=== PATIENT | male | born 1945 | race Caucasian/White ===

== ENCOUNTER 2018-10-29 18:50 | Inpatient (IN) | payer MEDICARE ==
--- OUTSIDE RECORDS SUMMARY | 2018-10-29 18:52 | XMS REPORT ---
:1945 Author Organization [facility] Address [address] [place] [address] Dr. Engle [address] [place] [id number] Care Team Providers Name Role Phone Unavailable Unavailable Unavailable Problems This patient has no known problems. Allergies, Adverse Reactions, Alerts This patient has no known allergies or adverse reactions. Medications This patient has no known medications.
--- NOTE | 2018-10-29 20:10 | EDPHYS ---
Physician Documentation [facility] Name: Louis Albarran Age: 73 yrs Sex: Male : 1945 Arrival Date: 10/29/2018 Time: 18:53 Bed 16 Private MD: ED Physician Kenneth Rodriguez HPI: 10/29 19:59 This 73 yrs old Male presents to ER via Wheelchair with complaints of Flu cony Symptoms, Vomiting/Diarrhea. Historical: - Allergies: 19:06 PENICILLINS; la1 - PMHx: 19:07 Hypertension; la1 - Immunization history:: Adult Immunizations up to date. - Social history:: Smoking status: Patient/guardian denies using tobacco. - Ebola Screening: : No symptoms or risks identified at this time. ROS: 19:59 Constitutional: Negative for fever, chills, and weight loss, Eyes: Negative for injury, cony pain, redness, and discharge, ENT: Negative for injury, pain, and discharge, Neck: Negative for injury, pain, and swelling, Back: Negative for injury and pain, : Negative for injury, bleeding, discharge, and swelling, MS/Extremity: Negative for injury and deformity, Skin: Negative for injury, rash, and discoloration, Neuro: Negative for headache, weakness, numbness, tingling, and seizure. 19:59 Cardiovascular: Positive for palpitations. 19:59 Respiratory: Positive for cough, shortness of breath, wheezing, expiratory. 19:59 Abdomen/GI: Positive for diarrhea, abdominal distension. Exam: 19:59 Constitutional: This is a well developed, well nourished patient who is awake, alert, cony and in no acute distress. Head/Face: Normocephalic, atraumatic. Eyes: Pupils equal round and reactive to light, extra-ocular motions intact. Lids and lashes normal. Conjunctiva and sclera are non-icteric and not injected. Cornea within normal limits. Periorbital areas with no swelling, redness, or edema. ENT: Nares patent. No nasal discharge, no septal abnormalities noted. Tympanic membranes are normal and external auditory canals are clear. Oropharynx with no redness, swelling, or masses, exudates, or evidence of obstruction, uvula midline. Mucous membranes moist. Neck: Trachea midline, no thyromegaly or masses palpated, and no cervical lymphadenopathy. Supple, full range of motion without nuchal rigidity, or vertebral point tenderness. No Meningismus. Chest/axilla: Normal chest wall appearance and motion. Nontender with no deformity. No lesions are appreciated. Abdomen/GI: Soft, non-tender, with normal bowel sounds. No distension or tympany. No guarding or rebound. No evidence of tenderness throughout. Back: No spinal tenderness. No costovertebral tenderness. Full range of motion. Male : Normal genitalia with no discharge or lesions. Skin: Warm, dry with normal turgor. Normal color with no rashes, no lesions, and no evidence of cellulitis. MS/ Extremity: Pulses equal, no cyanosis. Neurovascular intact. Full, normal range of motion. Neuro: Awake and alert, GCS 15, oriented to person, place, time, and situation. Cranial nerves II-XII grossly intact. Motor strength 5/5 in all extremities. Sensory grossly intact. Cerebellar exam normal. Normal gait. Psych: Awake, alert, with orientation to person, place and time. Behavior, mood, and affect are within normal limits. 19:59 Cardiovascular: Rate: tachycardic, Rhythm: regular, Pulses: Pulses are 4+ in bilateral radial, brachial, femoral, popliteal, posterior tibial and and dorsalis pedis arteries.. Heart sounds: normal, JVD: is not appreciated. 19:59 Respiratory: moderate respiratory distress is noted, Respirations: labored breathing, that is moderate, Breath sounds: decreased breath sounds, rhonchi, wheezing: that is moderate, is heard in the right lower lobe, right posterior upper lobe, right posterior middle lobe and right posterior lower lobe. Vital Signs: 19:09 Pulse 109; Resp 18; Temp 101.0; Pulse Ox 88% on R/A; Weight 104.33 kg; Height 5 ft. 10 la1 in. (177.80 cm); 19:10 BP 145 / 92; la1 20:00 BP 135 / 97; Pulse 101; Resp 16; Pulse Ox 96% on 2 lpm NC; jb4 21:45 BP 128 / 66; Pulse 110; Resp 18; Temp 99.6(O); Pulse Ox 97% on R/A; jb4 22:30 BP 109 / 73; Pulse 100; Resp 16; Pulse Ox 93% on R/A; jb4 23:30 BP 135 / 97; Pulse 104; Resp 16; Pulse Ox 93% on R/A; [facility] 10/30 00:30 BP 132 / 80; Pulse 89; Resp 22; Pulse Ox 94% on R/A; [facility] 02:00 BP 147 / 76; Pulse 85; Resp 16; Pulse Ox 94% on 2 lpm NC; [facility] 10/29 19:09 Body Mass Index 33.00 (104.33 kg, 177.80 cm) la1 MDM: 10/29 19:24 Patient medically screened. [facility] 19:59 Data reviewed: vital signs, nurses notes, lab test result(s), EKG, radiologic studies, cony plain films. 10/29 19:35 Order name: Basic Metabolic Panel; Complete Time: 23:12 [facility] 10/29 19:35 Order name: CBC with Diff; Complete Time: 23:12 [facility] 10/29 19:35 Order name: LFT's; Complete Time: 23:12 [facility] 10/29 19:35 Order name: Magnesium; Complete Time: 23:12 [facility] 10/29 19:35 Order name: NT PRO-BNP; Complete Time: 23:12 [facility] 10/29 19:35 Order name: PT-INR; Complete Time: 23:12 [facility] 10/29 19:35 Order name: Troponin (emerg Dept Use Only); Complete Time: 23:12 [facility] 10/29 19:35 Order name: Blood Culture Adult (2) [facility] 10/29 19:35 Order name: Influenza Screen (a \T\ B); Complete Time: 23:12 [facility] 10/29 19:35 Order name: Urine Culture [facility] 10/29 19:35 Order name: Lipase; Complete Time: 23:12 [facility] 10/29 20:06 Order name: Lactate; Complete Time: 23:12 [facility] 10/29 20:06 Order name: Procalcitonin; Complete Time: 23:12 [facility] 10/29 20:06 Order name: Stool Culture [facility] 10/29 19:35 Order name: XRAY Chest (1 view); Complete Time: 23:12 [facility] 10/29 19:35 Order name: EKG; Complete Time: 19:37 [facility] 10/29 20:06 Order name: Fecal Leukocyte Stain [facility] 10/29 21:20 Order name: Manual Differential; Complete Time: 23:12 EDMS 10/29 23:21 Order name: Urine Dipstick--Ancillary (enter results) ar5 10/30 01:32 Order name: Urine Dipstick-Ancillary EDDE 10/29 19:35 Order name: Cardiac monitoring; Complete Time: 20:50 [facility] 10/29 19:35 Order name: EKG - Nurse/Tech; Complete Time: 20:50 [facility] 10/29 19:35 Order name: IV Saline Lock; Complete Time: 20:50 [facility] 10/29 19:35 Order name: Labs collected and sent; Complete Time: 20:50 [facility] 10/29 19:35 Order name: O2 Per Protocol; Complete Time: 21:11 [facility] 10/29 19:35 Order name: O2 Sat Monitoring; Complete Time: 20:51 [facility] 10/29 19:35 Order name: Urine Dipstick-Ancillary (obtain specimen); Complete Time: 23:15 [facility] Administered Medications: 20:30 Drug: Tylenol 650 mg Route: PO; jb4 23:14 Follow up: Response: No adverse reaction; Temperature is decreased jb4 20:50 Drug: Rocephin - (cefTRIAXone) 1 grams {Note: given IVP per pharmacy protocol.} Route: jb4 IVPB; Infused Over: 30 mins; Site: left antecubital; 20:52 Follow up: Response: No adverse reaction; IV Status: Completed infusion jb4 21:00 Drug: Zithromax 500 mg Route: IVPB; Infused Over: 1 hrs; Site: left antecubital; jb4 22:00 Follow up: Response: No adverse reaction; IV Status: Completed infusion jb4 21:00 Drug: NS 0.9% 1000 ml Route: IV; Rate: 1 bolus; Site: left antecubital; jb4 22:57 Follow up: Response: No adverse reaction; IV Status: Completed infusion jb4 21:02 Drug: SOLU-Medrol 125 mg Route: IVP; Site: left antecubital; jb4 22:54 Follow up: Response: No adverse reaction jb4 21:05 Drug: Pepcid 20 mg Route: IVP; Site: left antecubital; jb4 22:55 Follow up: Response: No adverse reaction jb4 21:14 Drug: Albuterol - atroVENT (3:1) (2.5 mg - 0.5 mg) 3 ml Route: Nebulizer; jb4 21:45 Follow up: Response: No adverse reaction jb4 23:15 Drug: NS 0.9% 1000 ml Route: IV; Rate: 125 ml/hr; Site: left antecubital; jb4 10/30 03:07 Follow up: Response: No adverse reaction; IV Status: Infusion continued upon admission 4 10/29 23:40 Drug: Rocephin - (cefTRIAXone) 1 grams Route: IVPB; Infused Over: 30 mins; Site: left rr5 forearm; 23:42 Follow up: Response: No adverse reaction; IV Status: Completed infusion 4 23:41 Drug: Tamiflu 75 mg Route: PO; rr5 10/30 02:45 Follow up: Response: No adverse reaction 4 Disposition: 10/29/18 20:09 Hospitalization ordered by Vasquez Sharp for Inpatient Admission. Preliminary diagnosis are Fever, unspecified, Hypoxemia, Acute upper respiratory infection, unspecified, Diarrhea, unspecified, Weakness, Influenza due to identified novel influenza A virus, Bandemia, Pneumonia due to other specified bacteria - left base . - Bed requested for Telemetry/MedSurg (Inpatient). - Status is Inpatient Admission. jb4 - Condition is Fair. - Problem is new. - Symptoms have improved. UTI on Admission? No Signatures: Dispatcher [employer] EDMS Clau Tran RN RN kl Anderson, Corey, MD MD cha Attema, Lee, RN RN la1 Buddy Ceballos RN RN jb4 Edis Reyez RN RN rr5 Corrections: (The following items were deleted from the chart) 10/29 23:16 20:09 Hospitalization Ordered by Vasquez Sharp MD for Inpatient Admission. Preliminary [facility] diagnosis is Fever, unspecified; Hypoxemia; Acute upper respiratory infection, unspecified; Diarrhea, unspecified; Weakness. Bed requested for Telemetry/MedSurg (Inpatient). Status is Inpatient Admission. Condition is Fair. Problem is new. Symptoms have improved. UTI on Admission? No. cony 23:17 23:16 10/29/2018 20:09 Hospitalization Ordered by Vasquez Sharp MD for Inpatient cony Admission. Preliminary diagnosis is Fever, unspecified; Hypoxemia; Acute upper respiratory infection, unspecified; Diarrhea, unspecified; Weakness; Influenza due to identified novel influenza A virus; Bandemia. Bed requested for Telemetry/MedSurg (Inpatient). Status is Inpatient Admission. Condition is Fair. Problem is new. Symptoms have improved. UTI on Admission? No. cony 10/30 01:11 10/29 23:17 10/29/2018 20:09 Hospitalization Ordered by Vasquez Sharp MD for Inpatient kl Admission. Preliminary diagnosis is Fever, unspecified; Hypoxemia; Acute upper respiratory infection, unspecified; Diarrhea, unspecified; Weakness; Influenza due to identified novel influenza A virus; Bandemia; Pneumonia due to other specified bacteria - left base . Bed requested for Telemetry/MedSurg (Inpatient). Status is Inpatient Admission. Condition is Fair. Problem is new. Symptoms have improved. UTI on Admission? No. cony 10/30 03:08 01:11 10/29/2018 20:09 Hospitalization Ordered by Vasquez Sharp MD for Inpatient jb4 Admission. Preliminary diagnosis is Fever, unspecified; Hypoxemia; Acute upper respiratory infection, unspecified; Diarrhea, unspecified; Weakness; Influenza due to identified novel influenza A virus; Bandemia; Pneumonia due to other specified bacteria - left base . Bed requested for Telemetry/MedSurg (Inpatient). Status is Inpatient Admission. Condition is Fair. Problem is new. Symptoms have improved. UTI on Admission? No. kl
--- NOTE | 2018-10-29 20:10 | ER ---
Nurse's Notes [facility] Name: Louis Albarran Age: 73 yrs Sex: Male : 1945 Arrival Date: 10/29/2018 Time: 18:53 Bed 16 Private MD: Diagnosis: Fever, unspecified;Hypoxemia;Acute upper respiratory infection, unspecified;Diarrhea, unspecified;Weakness;Influenza due to identified novel influenza A virus;Bandemia;Pneumonia due to other specified bacteria-left base Presentation: 10/29 19:06 Presenting complaint: Patient states: I have been having a lot of diarrhea for the last la1 few days, I get real dizzy when I stand up, and I have had a cough as well for a couple days. Transition of care: patient was not received from another setting of care. Onset of symptoms was October 29, 2018. Risk Assessment: Do you want to hurt yourself or someone else? Patient reports no desire to harm self or others. Initial Sepsis Screen: Does the patient meet any 2 criteria? Temp <36.0*C (96.8*F)) or > 38.3*C (100.9*F). HR > 90 bpm. Yes Does the patient have a suspected source of infection? Yes: Productive cough/pneumonia. Care prior to arrival: None. 19:06 Method Of Arrival: Wheelchair la1 19:06 Acuity: MEÑO 3 la1 Historical: - Allergies: 19:06 PENICILLINS; la1 - PMHx: 19:07 Hypertension; la1 - Immunization history:: Adult Immunizations up to date. - Social history:: Smoking status: Patient/guardian denies using tobacco. - Ebola Screening: : No symptoms or risks identified at this time. Screenin:15 Abuse screen: Denies threats or abuse. Nutritional screening: No deficits noted. jb4 Tuberculosis screening: No symptoms or risk factors identified. Fall Risk IV access (20 points). Gait- Weak (10 pts.). Total Machado Fall Scale indicates Low Risk Score (25-44 pts). Fall prevention measures have been instituted. Side Rails Up X 2 Placed close to Nursing Station Frequent Obs/Assesments occuring As available Patient and Family Educated on Fall Prevention Program and strategies. Assessment: 19:15 General: Appears in no apparent distress. comfortable, Behavior is calm, cooperative, jb4 appropriate for age. Pain: Complains of pain in abdomen Pain does not radiate. Pain currently is 6 out of 10 on a pain scale. Quality of pain is described as Sore. Neuro: Level of Consciousness is awake, alert, obeys commands, Oriented to person, place, time, situation. Cardiovascular: Heart tones S1 S2 present Patient's skin is warm and dry. Respiratory: Airway is patent Respiratory effort is even, unlabored, Respiratory pattern is regular, symmetrical, Breath sounds are clear bilaterally. GI: Abdomen is round non-distended, Bowel sounds present X 4 quads. Abd is soft X 4 quads Abd is non tender in left upper quadrant and left lower quadrant Abdomen is tender to palpation in epigastric area, umbilical area, right upper quadrant and right lower quadrant Reports lower abdominal pain, upper abdominal pain, diarrhea, nausea, vomiting. : No signs and/or symptoms were reported regarding the genitourinary system. EENT: No signs and/or symptoms were reported regarding the EENT system. Derm: Skin is intact, Skin is pink, warm \T\ dry. Musculoskeletal: Circulation, motion, and sensation intact. 20:00 Reassessment: Patient appears in no apparent distress at this time. Patient and/or jb4 family updated on plan of care and expected duration. Pain level reassessed. Patient is alert, oriented x 3, equal unlabored respirations, skin warm/dry/pink. 21:00 Reassessment: Patient appears in no apparent distress at this time. Patient and/or jb4 family updated on plan of care and expected duration. Pain level reassessed. Patient is alert, oriented x 3, equal unlabored respirations, skin warm/dry/pink. Patient denies pain at this time. 22:00 Reassessment: Patient appears in no apparent distress at this time. Patient and/or jb4 family updated on plan of care and expected duration. Pain level reassessed. Patient is alert, oriented x 3, equal unlabored respirations, skin warm/dry/pink. 23:00 Reassessment: Patient appears in no apparent distress at this time. Patient and/or jb4 family updated on plan of care and expected duration. Pain level reassessed. Patient is alert, oriented x 3, equal unlabored respirations, skin warm/dry/pink. 10/30 00:00 Reassessment: Patient appears in no apparent distress at this time. Patient and/or jb4 family updated on plan of care and expected duration. Pain level reassessed. Patient is alert, oriented x 3, equal unlabored respirations, skin warm/dry/pink. 01:00 Reassessment: Patient appears in no apparent distress at this time. Patient and/or jb4 family updated on plan of care and expected duration. Pain level reassessed. Patient is alert, oriented x 3, equal unlabored respirations, skin warm/dry/pink. 02:15 Reassessment: Patient appears in no apparent distress at this time. Patient and/or jb4 family updated on plan of care and expected duration. Pain level reassessed. Patient is alert, oriented x 3, equal unlabored respirations, skin warm/dry/pink. report called to PEDRITO Valente. Vital Signs: 10/29 19:09 Pulse 109; Resp 18; Temp 101.0; Pulse Ox 88% on R/A; Weight 104.33 kg; Height 5 ft. 10 la1 in. (177.80 cm); 19:10 BP 145 / 92; la1 20:00 BP 135 / 97; Pulse 101; Resp 16; Pulse Ox 96% on 2 lpm NC; jb4 21:45 BP 128 / 66; Pulse 110; Resp 18; Temp 99.6(O); Pulse Ox 97% on R/A; jb4 22:30 BP 109 / 73; Pulse 100; Resp 16; Pulse Ox 93% on R/A; jb4 23:30 BP 135 / 97; Pulse 104; Resp 16; Pulse Ox 93% on R/A; jb4 10/30 00:30 BP 132 / 80; Pulse 89; Resp 22; Pulse Ox 94% on R/A; jb4 02:00 BP 147 / 76; Pulse 85; Resp 16; Pulse Ox 94% on 2 lpm NC; jb4 10/29 19:09 Body Mass Index 33.00 (104.33 kg, 177.80 cm) la1 ED Course: 10/29 18:53 Patient arrived in ED. mr 19:07 Triage completed. la1 19:07 Arm band placed on left wrist. la1 19:10 Buddy Ceballos RN is Primary Nurse. jb4 19:15 Patient has correct armband on for positive identification. Placed in gown. Bed in low jb4 position. Call light in reach. Side rails up X 1. 19:24 Kenneth Rodriguez MD is Attending Physician. [facility] 20:06 Vasquez Sharp MD is Hospitalizing Provider. [facility] 20:27 XRAY Chest (1 view) In Process Unspecified. EDMS 20:49 Inserted saline lock: 20 gauge in left antecubital area, using aseptic technique. Blood oe collected. 22:47 Notified ED physician of a critical lab result(s). bands 9%. fc 10/30 01:50 No provider procedures requiring assistance completed. IV discontinued, intact, jb4 bleeding controlled. 01:55 Inserted saline lock: 18 gauge in left wrist, using aseptic technique. jb4 02:00 Patient admitted, IV remains in place. jb4 Administered Medications: 10/29 20:30 Drug: Tylenol 650 mg Route: PO; jb4 23:14 Follow up: Response: No adverse reaction; Temperature is decreased jb4 20:50 Drug: Rocephin - (cefTRIAXone) 1 grams {Note: given IVP per pharmacy protocol.} Route: jb4 IVPB; Infused Over: 30 mins; Site: left antecubital; 20:52 Follow up: Response: No adverse reaction; IV Status: Completed infusion jb4 21:00 Drug: Zithromax 500 mg Route: IVPB; Infused Over: 1 hrs; Site: left antecubital; jb4 22:00 Follow up: Response: No adverse reaction; IV Status: Completed infusion jb4 21:00 Drug: NS 0.9% 1000 ml Route: IV; Rate: 1 bolus; Site: left antecubital; jb4 22:57 Follow up: Response: No adverse reaction; IV Status: Completed infusion jb4 21:02 Drug: SOLU-Medrol 125 mg Route: IVP; Site: left antecubital; jb4 22:54 Follow up: Response: No adverse reaction jb4 21:05 Drug: Pepcid 20 mg Route: IVP; Site: left antecubital; jb4 22:55 Follow up: Response: No adverse reaction jb4 21:14 Drug: Albuterol - atroVENT (3:1) (2.5 mg - 0.5 mg) 3 ml Route: Nebulizer; jb4 21:45 Follow up: Response: No adverse reaction jb4 23:15 Drug: NS 0.9% 1000 ml Route: IV; Rate: 125 ml/hr; Site: left antecubital; jb4 10/30 03:07 Follow up: Response: No adverse reaction; IV Status: Infusion continued upon admission jb4 10/29 23:40 Drug: Rocephin - (cefTRIAXone) 1 grams Route: IVPB; Infused Over: 30 mins; Site: left rr5 forearm; 23:42 Follow up: Response: No adverse reaction; IV Status: Completed infusion jb4 23:41 Drug: Tamiflu 75 mg Route: PO; rr5 10/30 02:45 Follow up: Response: No adverse reaction jb4 Outcome: 10/29 20:09 Decision to Hospitalize by Provider. [facility] 10/30 02:00 Admitted to Med/surg accompanied by nurse, via wheelchair, room 222, with oxygen, with jb4 chart, Report called to PEDRITO Valente Condition: stable Discharge instructions given to patient, Instructed on the need for admit, Demonstrated understanding of instructions. 03:08 Patient left the ED. 4 Signatures: Dispatcher [employer] EDMS Kenneth oRdriguez MD MD cha Rivera, Mary mr Mandy Guan, RN RN Westley Crowe RN RN la1 Buddy Ceballos RN RN jb4 Kamran Gomez Raymond, RN RN rr5 Corrections: (The following items were deleted from the chart) 10/29 19:10 19:06 Initial Sepsis Screen: Does the patient meet any 2 criteria? No. Patient's la1 initial sepsis screen is negative. Does the patient have a suspected source of infection? No. Patient's initial sepsis screen is negative. la1 10/30 02:43 10/29 19:15 GI: Abdomen is round non-distended, Bowel sounds present X 4 quads. Abd is jb4 soft X 4 quads Abd is non tender in left upper quadrant and left lower quadrant Abdomen is tender to palpation in epigastric area, umbilical area, right upper quadrant and right lower quadrant jb4
[2018-10-29] MEDS ORDERED: METHYLPREDNISOLONE 125 MG INJ ONE (20:38)
[2018-10-29] MEDS ORDERED: IPRATROPIUM BROM 0.5MG/2.5ML ONE (20:39)
[2018-10-29] MEDS ORDERED: ACETAMINOPHEN 325 MG TABLET ONE (20:39)
[2018-10-29] MEDS ORDERED: ALBUTEROL 2.5 MG/3 ML NEB SOL ONE (20:39)
[2018-10-29] MEDS ORDERED: NA CHLORIDE 0.9% 2,000 ML ONE (20:39)
[2018-10-29] MEDS ORDERED: FAMOTIDINE 20 MG/2 ML VIAL IV ONE ×2 (20:40→21:54)
[2018-10-29] MEDS ORDERED: AZITHROMYCIN 500 MG/250 ML BAG ONE (20:40)
[2018-10-29] MEDS ORDERED: CEFTRIAXONE/SWI 1gm 1 GM/10 ML SYR ONE ×2 (20:40→23:40)
--- NOTE | 2018-10-29 20:52 | RAD REPORT ---
EXAM DESCRIPTION: [facility] Single View10/29/2018 8:26 pm CLINICAL HISTORY: Cough COMPARISON: none FINDINGS: Mild left basilar opacity is suspected. Right lung appears clear. The heart is normal siz e IMPRESSION: Mild left basilar pneumonia suspected
[2018-10-29 21:13] LABS: Absolute Lymphocytes (CBC) 0.3 K/uL (0.7-4.9); Absolute Monocytes 0.6 K/uL (0.1-1.3); Absolute Neutrophil 5.7 K/uL (1.8-8.0); Basophils % 0.1 % (0-1.3); Eosinophils % 0.1 % (0-4.4); Hematocrit 48.4 % (39.6-49.0); Lymphocytes % 5.2 % (15.3-44.8); Monocytes % 9.4 % (3.3-12.3); RBC Red Blood Cell Count 5.43 M/uL (4.33-5.43)
[2018-10-29 21:27] LABS: Albumin 3.8 g/dL (3.4-5.0); Bilirubin Direct 0.2 mg/dL (0-0.2); Bilirubin Total 0.7 mg/dL (0.2-1.0); Potassium 3.6 mmol/L (3.5-5.1); Protein, Total 7.4 g/dL (6.4-8.2); Troponin (Emerg Dept Use Only) 0.02 ng/mL (0.0-0.045)
[2018-10-29 21:29] LABS: Protime INR 1.16
[2018-10-29 22:47] LABS: Blood Morphology Comment NOT SEEN (NOT SEEN); Platelet Estimate DECR
[2018-10-29] MEDS ORDERED: OSELTAMIVIR 75 MG CAP ONE (23:38)
[2018-10-30 01:32] LABS: Urine Blood 1+ (NEG); Urine Glucose NEGATIVE (NEG); Urine Protein TRACE (NEG); Urine Specific Gravity 1.025 (1.005-1.030); Urine pH 5.5 (5.0-7.0)
[2018-10-30] MEDS ORDERED: IPRATROPIUM BROM 0.5MG/2.5ML NEB PRN (03:13)
[2018-10-30] MEDS ORDERED: ALBUTEROL 2.5 MG/3 ML NEB SOL NEB PRN (03:13)
[2018-10-30] MEDS: NA CHLORIDE 0.9% 1,000 ML IV SCH ×4 (03:13→22:01)
[2018-10-30] MEDS ORDERED: ONDANSETRON 4 MG/2 ML VIAL IV PRN (03:13)
[2018-10-30] MEDS ORDERED: ACETAMINOPHEN 500 MG TAB PO PRN (03:13)
[2018-10-30 03:25] VITALS: BMI 33.0
[2018-10-30] MEDS: Levofloxacin 750mg IV 750 MG/150 ML BAG IV SCH (03:56)
[2018-10-30] MEDS ORDERED: guaiFENesin 100 MG/5 ML UCUP PO PRN (04:13)
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
[2018-10-30 06:39] LABS: BUN Blood Urea Nitrogen 14 mg/dL (7-18); Bicarbonate 25 mmol/L (21-32); Glucose Level 173 mg/dL (74-106); Potassium 3.7 mmol/L (3.5-5.1); Sodium Level 140 mmol/L (136-145)
[2018-10-30 06:53] LABS: Absolute Lymphocytes (CBC) 0.3 K/uL (0.7-4.9); Absolute Monocytes 0.1 K/uL (0.1-1.3); Hematocrit 44.1 % (39.6-49.0); MPV 10.1 fL (7.6-11.3); Monocytes % 3.1 % (3.3-12.3)
--- NOTE | 2018-10-30 07:58 | EKG ---
Test Date: 2018-10-29 Test Time: 20:05:34 Churner: LEAH MEASUREMENT RESULTS: Intervals: Rate: 104 OR: 162 QRSD: 66 QT: 314 QTc: 412 Thorpe: P: 33 OR: 162 QRS: 46 T: 50 INTERPRETIVE STATEMENTS: Sinus tachycardia with premature atrial complexes Possible Left atrial enlargement Low voltage QRS Borderline ECG Compared to ECG 12/18/2016 01:15:20 Atrial premature complex(es) now present Ventricular premature complex(es) no longer present Electronically Signed On 10-30-18 07:53:14 BUCKLE SEWER MACHINE by Gabriel Parham
[2018-10-30] MEDS ORDERED: POTASSIUM CL SA 10 MEQ TAB PO ONE (09:00)
[2018-10-30] MEDS: ENOXAPARIN 40 MG/0.4 ML SQ SCH (09:06)
[2018-10-30] MEDS: OSELTAMIVIR 75 MG CAP PO SCH ×2 (09:06→21:23)
--- NOTE | 2018-10-30 17:23 | PN ---
Date of Progress Note: 10/30/2018 Subjective: The patient seen and examined. Chart reviewed and case discussed with RN. The patient states he feels better than yesterday overall. Medications: Medication List reviewed. Code Status: Full code. Objective: Vital Signs: Temperature 99.1, heart rate 81, blood pressure 137/76, respirations 16, an d O2 95% on room air. General: Awake, alert, oriented x3, ill-appearing elderly male, obese, BMI greater than 30. CV: S1, S2. Regular rate and rhythm. Peripheral pulses present. Respiratory: Diminished breath sounds. No wheezing or stridor. Gastrointestinal: Abdomen is soft, nontender, nondistended. Positive bowel sounds. Extremities: No clubbing, cyanosis, or edema. Musculoskeletal: Upper extremity hand deformity. Neuro: Cranial nerves 2 through 12 intact grossly. No focal neurological deficits. Speech is alexand[place] l. Laboratory Data: Sodium 140, potassium 3.7, chloride 107, CO2 25, BUN 14, creatinine 0.78, glucose 1 73, and calcium 8.2. WBC 4.4, H and H 14.8, 44.1; platelets 112; neutrophils 89.9%; no bands. Cultu res are pending. Assessment: A 73-year-old male with: 1.Influenza A. Continue with Tamiflu. 2.Pneumonia due to influenza A virus, left lower lobe. Continue symptomatic treatment. 3.Essential hypertension. We will resume home medications as appropriate. 4.Obesity, body mass index greater than 30. Plan: We will continue empiric antibiotics and Tamiflu. Continue respiratory droplet isolation. Re sume home medications. Follow up on cultures. Likely discharge in the next 24-48 hours depending on clinical response. /REBECCA Voice ID: [id number] Report ID: [id number]
[2018-10-30] MEDS: GUAIFENESIN/CODEINE 5ML UCUP PO PRN ×2 (17:24→21:46)
[2018-10-30] MEDS: CARVEDILOL 12.5 MG TAB PO SCH (21:23)
[2018-10-31] MEDS: Levofloxacin 750mg IV 750 MG/150 ML BAG IV SCH (03:25)
[2018-10-31] MEDS: NA CHLORIDE 0.9% 1,000 ML IV SCH (06:12)
[2018-10-31] MEDS: GUAIFENESIN/CODEINE 5ML UCUP PO PRN (06:13)
[2018-10-31 06:39] LABS: Absolute Lymphocytes (CBC) 1.1 K/uL (0.7-4.9); Absolute Monocytes 0.6 K/uL (0.1-1.3); Absolute Neutrophil 2.9 K/uL (1.8-8.0); Basophils % 0.1 % (0-1.3); Eosinophils % 0.2 % (0-4.4); Lymphocytes % 22.8 % (15.3-44.8); MPV 9.3 fL (7.6-11.3); Monocytes % 13.9 % (3.3-12.3); RBC Red Blood Cell Count 4.94 M/uL (4.33-5.43)
[2018-10-31 06:49] LABS: BUN Blood Urea Nitrogen 16 mg/dL (7-18); Bicarbonate 25 mmol/L (21-32); Glucose Level 89 mg/dL (74-106); Potassium 3.7 mmol/L (3.5-5.1); Sodium Level 142 mmol/L (136-145)
[2018-10-31] MEDS: CARVEDILOL 12.5 MG TAB PO SCH (11:12)
[2018-10-31] MEDS: ENOXAPARIN 40 MG/0.4 ML SQ SCH (11:12)
[2018-10-31] MEDS: OSELTAMIVIR 75 MG CAP PO SCH (11:12)
[2018-10-31 13:04] VITALS: BP 132/85; TEMP 99.3
[2018-10-31 13:16] VITALS: O2SAT 93
--- NOTE | 2018-10-31 19:22 | P.DS ---
Admission Date: 10/29/18 Discharge Date: 11/03/18 Disposition: ROUTINE DISCHARGE Discharge Condition: GOOD Reason for Admission: pneumonia, influenza A Brief History of Present Illness: Mr Albarran is a 73 years old male with history of HTN who start 2-3 days ago with diarrhea, dizziness and progressive weakness. He was also complaining of of dry cough for a couple of days. Today, he came to ED because was very weak, unable to stund up from bed. He had chills and fever at home. At arrival the patient was febrile, 101F, lab work shows normal WBC count but 9% bandemia, Lactate and procalcitonin negative. CXR remarkable for left lower lobe pneumonia. Influenza A positive. Hospital Course: Patient was admitted for left lower lobe pneumonia and influenza A. She was covered empiric antibiotics for possible bacterial super post infection. She was started on Tamiflu and IV antibiotics. Her symptoms greatly improved. At the time of discharge, patient was alert oriented x3, hemodynamically stable, in no acute distress, her symptoms and drastically improved. She was ambulating without any concerns and tolerating an oral diet. She was discharged home on oral antibiotics in Tamiflu. Vital Signs/Physical Exam: Temp Pulse Resp BP Pulse Ox 99.3 F 83 18 132/85 91 10/31/18 12:00 10/31/18 12:00 10/31/18 12:00 10/31/18 12:00 10/31/18 12:00 General: Alert, In no apparent distress HEENT: Atraumatic, PERRLA, EOMI Neck: Supple, JVD not distended Respiratory: Clear to auscultation bilaterally, Normal air movement Cardiovascular: Regular rate/rhythm, Normal S1 S2 Gastrointestinal: Normal bowel sounds, No tenderness Musculoskeletal: No tenderness Integumentary: No rashes Neurological: Normal speech, Normal tone, Normal affect Lymphatics: No axilla or inguinal lymphadenopathy Laboratory Data at Discharge: WBC 4.4 K/uL (4.3-10.9) D 10/30/18 05:50 Hgb 14.8 g/dL (13.6-17.9) 10/30/18 05:50 Hct 44.1 % (39.6-49.0) 10/30/18 05:50 Plt Count 112 K/uL (152-406) L 10/30/18 05:50 PT 13.8 SECONDS (9.2-12.8) H 10/29/18 20:40 INR 1.16 10/29/18 20:40 Sodium 140 mmol/L (136-145) 10/30/18 05:50 Potassium 3.7 mmol/L (3.5-5.1) 10/30/18 05:50 BUN 14 mg/dL (7-18) 10/30/18 05:50 Creatinine 0.78 mg/dL (0.55-1.3) 10/30/18 05:50 Glucose 173 mg/dL (74-106) H 10/30/18 05:50 Magnesium 2.0 mg/dL (1.8-2.4) 10/29/18 20:40 Total Bilirubin 0.7 mg/dL (0.2-1.0) 10/29/18 20:40 AST 28 U/L (15-37) 10/29/18 20:40 ALT 37 U/L (12-78) 10/29/18 20:40 Alkaline Phosphatase 68 U/L (45-117) 10/29/18 20:40 Lipase 72 U/L (73-393) L 10/29/18 20:40 Home Medications: Carvedilol 12.5 mg PO BID 10/30/18 Oseltamivir [Tamiflu*] 75 mg PO BID #8 cap 10/31/18 levoFLOXacin [Levaquin] 500 mg PO DAILY #6 tab 10/31/18 New Medications: levoFLOXacin [Levaquin] 500 mg PO DAILY #6 tab Oseltamivir [Tamiflu*] 75 mg PO BID #8 cap Patient Discharge Instructions: Please follow up with the primary care physician in 1 week. New medications: Tamiflu, Levaquin. Please return to the ER for worsening symptoms Diet: AHA Activity: Ad sam Time spent managing pt's care (in minutes): 45
== END 2018-10-31 13:08 | disposition home or self-care (01) | DRG 195 ==
LOC: ER 18:50 → ERHOLD 20:09 → 2ND 10-30 02:22
PROVIDERS: ADMIT Internal Medicine; ATTEND Family Medicine
DX: J09.X1 Influenza due to identified novel influenza A virus with pneumonia (principal); I10 Essential (primary) hypertension; Z88.0 Allergy status to penicillin; Z85.46 Personal history of malignant neoplasm of prostate; G89.29 Other chronic pain; M54.9 Dorsalgia, unspecified; M21.371 Foot drop, right foot; Z87.891 Personal history of nicotine dependence; E66.9 Obesity, unspecified; Z68.30 Body mass index [BMI] 30.0-30.9, adult
CPT/HCPCS: 36415; 71045; 80048; 80076; 81003; 83605; 83690; 83735; 83880; 84145; 84484; 85025; 85610; 87040; 87045; 87046; 87070; 87086; 87088; 87205; 87804; 89055; 93005; 94640; 94760; 99285; J0456; J0696; J1650; J2930; J7030

== ENCOUNTER 2018-11-10 13:42 | Emergency (ER) | payer MEDICARE ==
--- OUTSIDE RECORDS SUMMARY | 2018-11-10 13:45 | XMS REPORT ---
:1945 [facility] Address [address] [place] [address] Dr. Engle [address] [place] [id number] Care Team Providers Name Role Phone Unavailable Unavailable Unavailable Problems This patient has no known problems. Allergies, Adverse Reactions, Alerts This patient has no known allergies or adverse reactions. Medications This patient has no known medications.
[2018-11-10] MEDS ORDERED: LIDOCAINE 1% MPF 5 ML VIAL ONE (16:05)
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
[2018-11-10 16:50] VITALS: BP 146/86; TEMP 97.9; O2SAT 99
== END 2018-11-10 16:43 | disposition home or self-care (01) ==
LOC: ER 13:42
PROC: 0J970ZZ Drainage of Back Subcutaneous Tissue and Fascia, Open Approach (ICD-10-PCS; principal; 2018-11-10)
DX: L02.212 Cutaneous abscess of back [any part, except buttock and flank] (principal); I10 Essential (primary) hypertension; Z88.0 Allergy status to penicillin
CPT/HCPCS: 99283

== ENCOUNTER 2019-01-22 17:56 | Emergency (ER) | payer MEDICARE ==
--- OUTSIDE RECORDS SUMMARY | 2019-01-22 17:58 | XMS REPORT ---
:1945 [facility] Address [address] [place] [address] Dr. Engle [address] [place] [id number] Care Team Providers Name Role Phone Unavailable Unavailable Unavailable Problems This patient has no known problems. Allergies, Adverse Reactions, Alerts This patient has no known allergies or adverse reactions. Medications This patient has no known medications.
[2019-01-22] MEDS ORDERED: CLINDAMYCIN HCL 150 MG CAP ONE (18:54)
[2019-01-22] MEDS ORDERED: CLINDAMYCIN IV 150 MG/ML (4 mL) VIAL ONE (18:58)
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
--- NOTE | 2019-01-22 19:35 | RAD REPORT ---
EXAM DESCRIPTION: RAD - Hand Left 3 View - 01/22/2019 6:51 pm CLINICAL HISTORY: Pain;Swelling;Smash injury COMPARISON: No comparisons FINDINGS: Soft tissue swelling is seen the palmar region of the hand. Ulnar deviations the digits is seen. No foreign body or fracture.
[2019-01-22 20:16] VITALS: BP 182/104; TEMP 98.9; O2SAT 97
== END 2019-01-22 19:58 | disposition home or self-care (01) ==
LOC: ER 17:56
DX: S61.237A Puncture wound without foreign body of left little finger without damage to nail, initial encounter (principal); Y92.009 Unspecified place in unspecified non-institutional (private) residence as the place of occurrence of the external cause; I10 Essential (primary) hypertension; Z88.0 Allergy status to penicillin
CPT/HCPCS: 73130; 96372; 99284; S0077

== ENCOUNTER 2019-01-27 07:01 | Emergency (ER) | payer MEDICARE ==
--- OUTSIDE RECORDS SUMMARY | 2019-01-27 07:04 | XMS REPORT ---
:1945 [facility] Organization [facility] Address [address] [place] [address] Dr. Engle [address] [place] [id number] Care Team Providers Name Role Phone Unavailable Unavailable Unavailable Problems This patient has no known problems. Allergies, Adverse Reactions, Alerts This patient has no known allergies or adverse reactions. Medications This patient has no known medications.
[2019-01-27 07:57] LABS: Absolute Lymphocytes (CBC) 1.1 K/uL (0.7-4.9); Absolute Monocytes 0.7 K/uL (0.1-1.3); Absolute Neutrophil 4.8 K/uL (1.8-8.0); Basophils % 0.4 % (0-1.3); Eosinophils % 1.5 % (0-4.4); Hematocrit 46.6 % (39.6-49.0); Lymphocytes % 16.3 % (15.3-44.8); MPV 9.6 fL (7.6-11.3); Monocytes % 10.7 % (3.3-12.3); RBC Red Blood Cell Count 5.33 M/uL (4.33-5.43)
[2019-01-27 08:02] LABS: BUN Blood Urea Nitrogen 18 mg/dL (7-18); Bicarbonate 26 mmol/L (21-32); Glucose Level 119 mg/dL (74-106); Potassium 3.7 mmol/L (3.5-5.1); Sodium Level 142 mmol/L (136-145)
--- NOTE | 2019-01-27 09:27 | RAD REPORT ---
EXAM DESCRIPTION: CT - Hand Left W Con - 01/27/2019 8:45 am CLINICAL HISTORY: Left hand pain and swelling COMPARISON: January 22, 2019 x-ray TECHNIQUE: Computed axial tomography left hand obtained with coronal and sagittal reconstruction. 50 cc Isovue-[address] CT scans are performed using dose optimization technique as appropriate and may include automated exposure control or mA/KV adjustment according to patient size. FINDINGS: Chronic deformity involves the left hand. A 13 x 5 x 13 millimeter fluid collection consistent with an abscess is present along the palmar aspe ct of the mid and distal fifth proximal phalanx. A thin tract Extends proximal and connects to another fluid collection measuring 10 millimeters along the palmar a spect of the fifth metatarsal. No underlying osteomyelitis is noted involving the first digit. A 10 millimeter peripherally calcified structure extends off of the plantar aspect of the fourth prox imal phalanx and likely is chronic Diffuse edema is present within subcutaneous tissues IMPRESSION: Two abscesses involving the lateral aspect of the left hand
[2019-01-27] MEDS ORDERED: Levofloxacin500mg IV 500 MG/100 ML BAG IV ONE (09:59)
[2019-01-27] MEDS ORDERED: VANCOMYCIN 1.5 GM in NA CHLORIDE 0.9% 500 ML IVPB SCH (10:00)
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
[2019-01-27 12:03] VITALS: TEMP 97.7
[2019-01-27 12:08] VITALS: BP 125/90; O2SAT 100
== END 2019-01-27 11:55 | disposition short-term general hospital (02) ==
LOC: ER 07:01
DX: M65.042 Abscess of tendon sheath, left hand (principal); Z88.0 Allergy status to penicillin
CPT/HCPCS: 87040 ×2; 85025; 80048; 36415; 84145; 73201; Q9967; 96365; 99285

== ENCOUNTER 2019-02-02 06:51 | Emergency (ER) | payer MEDICARE ==
--- OUTSIDE RECORDS SUMMARY | 2019-02-02 06:53 | XMS REPORT | Clinical Summary ---
:1945 Author Organization [facility] Address [address] [place] [address] Care Team Providers Name Role Phone Unavailable Primary Care Provider Unavailable Allergies Active Allergy Reactions Severity Noted Date Comments Penicillins Hives 01/27/2019 Medications Medication Sig Dispensed Refills Start Date End Date Status carvedilol (COREG) Take 12.5 mg by 0 Active 12.5 MG tablet mouth 2 (two) times daily with breakfast and dinner. acetaminophen-code Take 1 tablet 30 tablet 0 01/29/2019 Active ine (TYLENOL #3) by mouth every 9 300-30 mg per 4 (four) hours tablet as needed for up to 10 days. Max Daily Amount: 6 tablets clindamycin Take 1 capsule 28 capsule 0 01/31/2019 Active (CLEOCIN) 300 MG (300 mg total) 9 capsule by mouth 4 (four) times daily for 7 days. levoFLOXacin Take 1 tablet 8 tablet 0 01/29/2019 Discontinued (LEVAQUIN) 500 MG (500 mg total) 9 tablet by mouth daily for 8 days. acetaminophen-code Take 1 tablet 30 tablet 0 01/29/2019 Discontinued ine (TYLENOL #3) by mouth every 9 300-30 mg per 4 (four) hours tablet as needed for up to 10 days. Max Daily Amount: 6 tablets Active Problems Problem Noted Date Hand abscess 01/27/2019 Essential hypertension 01/27/2019 Class 1 obesity with body mass index (BMI) of 33.0 to 33.9 in adult 01/27/2019 Encounters Date Type Specialty Care Team Description 01/27/2019 Anesthesia Event Bri Mason, JESENIA 01/27/2019 Surgery Bisi Soriano/I&D,SANDRA Hugo MD D EXTREMITY UPPER 01/27/2019 - Hospital Encounter General Internal Arnaud, Caren Hand abscess (Primary Dx); 01/29/2019 Medicine MD Kane Class 1 obesity due to excess calories without serious comorbidity with body mass index (BMI) of 33.0 to 33.9 in adult; Uday Ocampo Essential hypertension Freya, MD Haro, Declan Sanchez MD 01/27/2019 Travel after 02/01/2018 Family History Relation Name Status Comments Father (Age 87) Mother (Age 90) Social History Tobacco Use Types Packs/Day Years Used Date Former Smoker 20 Smokeless Tobacco: Never Used Alcohol Use Drinks/Week oz/Week Comments No remote Alcohol Habits Answer Date Recorded How often do you have a drink containing alcohol? Never 01/27/2019 How many drinks containing alcohol do you have on a typical Not asked day when you are drinking? How often do you have six or more drinks on one occasion? Not asked Sex Assigned at Date Recorded Not on file Job Start Date Occupation Industry Not on file Not on file Not on file Travel History Travel Start Travel End No recent travel history available. Last Filed Vital Signs Vital Sign Reading Time Taken Blood Pressure 130/77 01/29/2019 8:06 AM CDT Pulse 80 01/29/2019 8:06 AM CDT Temperature 36.1 C (96.9 F) 01/29/2019 8:06 AM CDT Respiratory Rate 18 01/29/2019 8:06 AM CDT Oxygen Saturation 97% 01/29/2019 8:06 AM CDT Inhaled Oxygen Concentration - - Weight 104.3 kg (230 lb) 01/27/2019 1:00 PM CDT Height 177.8 cm (5' 10") 01/27/2019 1:00 PM CDT Body Mass Index 33 01/27/2019 1:00 PM CDT Plan of Treatment Not on file Procedures Procedure Name Priority Date/Time Associated Comments Diagnosis VANCOMYCIN LEVEL, Timed 01/29/2019 8:19 Results for this TROUGH AM CDT procedure are in the results section. CBC W/PLT COUNT & Routine 01/28/2019 5:39 Results for this AUTO DIFFERENTIAL AM CDT procedure are in the results section. BASIC METABOLIC PANEL Routine 01/28/2019 5:39 Results for this (7) AM CDT procedure are in the results section. CBC W/PLT COUNT & Routine 01/28/2019 5:39 Results for this AUTO DIFFERENTIAL AM CDT procedure are in the results section. SURGICALLY OBTAINED Routine 01/27/2019 4:54 Results for this CULTURE + GRAM STAIN PM CDT procedure are in the results section. FUNGUS CULTURE + Routine 01/27/2019 4:54 SMEAR PM CDT ANAEROBIC CULTURE Routine 01/27/2019 4:54 Results for this PM CDT procedure are in the results section. AFB CULTURE + SMEAR Routine 01/27/2019 4:54 PM CDT SPIN/CONCENTRATION Routine 01/27/2019 4:54 Results for this CHARGE PM CDT procedure are in the results section. DEBRIDEMENT/I&D,WOUND 01/27/2019 2:30 Abscess of left EXTREMITY UPPER PM CDT hand after 02/01/2018 Results Vancomycin level, trough (01/29/2019 8:19 AM CDT) Vancomycin Tr 11.8 10.0 - 20.0 ug/mL [facility] Specimen Blood Performing Organization Address City/State/Zipcode Phone Number [facility] [address] [place] [address] CENTER CBC with platelet count + automated diff (01/28/2019 5:39 AM CDT) WBC 7.5 3.5 - 10.5 K/L [facility] RBC 5.26 4.63 - 6.08 M/L [facility] Hemoglobin 15.3 13.7 - 17.5 GM/DL [facility] Hematocrit 47.0 40.1 - 51.0 % [facility] MCV 89.4 79.0 - 92.2 fL [facility] MCH 29.1 25.7 - 32.2 pg [facility] MCHC 32.6 32.3 - 36.5 GM/DL [facility] RDW 12.7 11.6 - 14.4 % [facility] Platelets 175 150 - 450 K/CU MM [facility] MPV 10.9 9.4 - 12.4 fL [facility] nRBC 0 0 - 0 /100 WBC [facility] % Neutros 84 % [facility] % Lymphs 9 % [facility] % Monos 5 % [facility] % Eos 2 % [facility] % Baso 0 % [facility] # Neutros 6.29 (H) 1.78 - 5.38 K/L [facility] # Lymphs 0.67 (L) 1.32 - 3.57 K/L [facility] # Monos 0.34 0.30 - 0.82 K/L [facility] # Eos 0.14 0.04 - 0.54 K/L [facility] # Baso 0.01 0.01 - 0.08 K/L [facility] Immature Granulocytes-Relative 0 0 - 1 % [facility] Specimen Blood Performing Organization Address City/State/Zipcode Phone Number [facility] [address] [place] [address] CENTER Basic Metabolic Panel (01/28/2019 5:39 AM CDT) Sodium 138 136 - 145 meq/L [facility] Potassium 4.1 3.5 - 5.1 meq/L [facility] Chloride 107 98 - 107 meq/L [facility] CO2 24 22 - 29 meq/L [facility] BUN 14 7 - 21 mg/dL [facility] Creatinine 0.73 0.57 - 1.25 mg/dL [facility] Glucose 105 70 - 105 mg/dL [facility] Calcium 8.7 8.4 - 10.2 mg/dL [facility] EGFR 106Comment: ESTIMATED GFR IS mL/min/1.73 sq m [facility] NOT ACCURATE CREATININE [facility] CENTER CLEARANCE IN PREDICTING GLOMERULAR FILTRATION RATE. ESTIMATED GFR IS NOT APPLICABLE FOR DIALYSIS PATIENTS. Specimen Blood Performing Organization Address City/[facility]/Zipcode Phone Number [facility] [address] [place] [address] [phone] [facility] Anaerobic culture (01/27/2019 4:54 PM CDT) Result No anaerobes isolated [facility] Specimen Wound Performing Organization Address [facility]/Zipcode Phone Number [address] [address] [place] Surgically obtained culture + gram stain (01/27/2019 4:54 PM CDT) Result STAPHYLOCOCCUS AUREUS (A) [facility] Gram Stain Result <1+ White blood cells seen [facility] Gram Stain Result No organisms seen [facility] Specimen Wound Organism Antibiotic Method Susceptibility Staphylococcus aureus Clindamycin >=4: Resistant Staphylococcus aureus Erythromycin >=8: Resistant Staphylococcus aureus Linezolid 2: Susceptible Staphylococcus aureus Oxacillin <=0.25: Susceptible Staphylococcus aureus Rifampin <=0.5: Susceptible Staphylococcus aureus Tetracycline <=1: Susceptible Staphylococcus aureus Trimethoprim + Sulfamethoxazole <=10: Susceptible Staphylococcus aureus Vancomycin 1: Susceptible Performing Organization Address [facility] Phone Number [address] [address] CENTER SPIN/CONCENTRATION CHARGE (01/27/2019 4:54 PM CDT) Concentration charged Done [facility] Specimen Wound Performing Organization Address [facility]/Zipcode Phone Number [address] [address] [phone] CENTER after 02/01/2018 Insurance Payer Benefit Plan / Group Subscriber ID Type Phone Address [facility] - MEDICARE AARP/MEDICARE COMPLETE xxxxxxxxx MGD CARE Advance Directives For more information, please contact:[address] [phone] Code Status Date Activated Date Inactivated Comments Full Code 01/27/2019 1:43 PM 01/29/2019 4:10 PM This code status was determined by: Patient
--- OUTSIDE RECORDS SUMMARY | 2019-02-02 06:54 | XMS REPORT ---
:1945 [facility] Address [address] [place] [address] Dr. Engle [address] [place] [id number] Care Team Providers Name Role Phone JODEE URIAS Unavailable Unavailable Problems This patient has no known problems. Allergies, Adverse Reactions, Alerts This patient has no known allergies or adverse reactions. Medications This patient has no known medications. Results Test Description Test Time Test Comments Text Results Atomic Results Result Comments ANAEROBIC CULTURE 2019-01-31 03:00:00 Test Item Value Reference Range Comments CULTURE (BEAKER) (test hpqg=9049) No anaerobes isolated SURGICALLY OBTAINED CULTURE + GRAM [id number] 11:09:00 Test Item Value Reference Range Comments CULTURE (BEAKER) (test STAPHYLOCOCCUS AUREUS 2+ Staphylococcus tcjt=5455) aureus Clindamycin (test code=10) Erythromycin (test code=4) Linezolid (test code=40) Nitrofurantoin (test code=23) Oxacillin (test code=14) Rifampin (test code=43) Tetracycline (test code=2) Trimethoprim + Sulfamethoxazole (test code=47) Vancomycin (test code=13) GRAM STAIN RESULT <1+ White blood cells (BEAKER) (test xcca=2688) seen GRAM STAIN RESULT No organisms seen (BEAKER) (test ubyx=[id number]) VANCOMYCIN LEVEL, [id number] 08:51:00 Test Item Value Reference Range Comments VANCOMYCIN TROUGH (BEAKER) (test lamq=756) 11.8 ug/mL 10.0-20.0 SPIN/CONCENTRATION [id number] 15:13:00 Test Item Value Reference Range Comments CONCENTRATION CHARGED (BEAKER) (test vyjc=5407) Done BASIC METABOLIC [id number] 07:15:00 Test Item Value Reference Range Comments SODIUM (BEAKER) (test 138 meq/L 136-145 jjxv=580) POTASSIUM (BEAKER) (test 4.1 meq/L 3.5-5.1 hkhm=130) CHLORIDE (BEAKER) (test 107 meq/L 98-107 hrbp=628) CO2 (BEAKER) (test 24 meq/L 22-29 rpcx=050) BLOOD UREA NITROGEN 14 mg/dL 7-21 (BEAKER) (test uova=697) CREATININE (BEAKER) (test 0.73 mg/dL 0.57-1.25 ktbq=996) GLUCOSE RANDOM (BEAKER) 105 mg/dL 70-105 (test utyi=347) CALCIUM (BEAKER) (test 8.7 mg/dL 8.4-10.2 hgxg=423) EGFR (BEAKER) (test 106 mL/min/1.73 sq m ESTIMATED GFR IS NOT kpxs=7008) ACCURATE CREATININE CLEARANCE IN PREDICTING GLOMERULAR FILTRATION RATE. ESTIMATED GFR IS NOT APPLICABLE FOR DIALYSIS PATIENTS. CBC W/PLT COUNT & AUTO [id number] 06:51:00 Test Item Value Reference Range Comments WHITE BLOOD CELL COUNT (BEAKER) (test fpjk=230) 7.5 K/ L 3.5-10.5 RED BLOOD CELL COUNT (BEAKER) (test hmgf=323) 5.26 M/ L 4.63-6.08 HEMOGLOBIN (BEAKER) (test helj=609) 15.3 GM/DL 13.7-17.5 HEMATOCRIT (BEAKER) (test rjpu=634) 47.0 % 40.1-51.0 MEAN CORPUSCULAR VOLUME (BEAKER) (test ropl=345) 89.4 fL 79.0-92.2 MEAN CORPUSCULAR HEMOGLOBIN (BEAKER) (test 29.1 pg 25.7-32.2 cajf=660) MEAN CORPUSCULAR HEMOGLOBIN CONC (BEAKER) (test 32.6 GM/DL 32.3-36.5 oyuf=297) RED CELL DISTRIBUTION WIDTH (BEAKER) (test 12.7 % 11.6-14.4 wiaf=885) PLATELET COUNT (BEAKER) (test nube=764) 175 K/CU MM 150-450 MEAN PLATELET VOLUME (BEAKER) (test fika=142) 10.9 fL 9.4-12.4 NUCLEATED RED BLOOD CELLS (BEAKER) (test 0 /100 WBC 0-0 zxgq=154) NEUTROPHILS RELATIVE PERCENT (BEAKER) (test 84 % inqz=124) LYMPHOCYTES RELATIVE PERCENT (BEAKER) (test 9 % kuhc=043) MONOCYTES RELATIVE PERCENT (BEAKER) (test 5 % vwpi=977) EOSINOPHILS RELATIVE PERCENT (BEAKER) (test 2 % wukh=912) BASOPHILS RELATIVE PERCENT (BEAKER) (test 0 % tslb=482) NEUTROPHILS ABSOLUTE COUNT (BEAKER) (test 6.29 K/ L 1.78-5.38 slxs=579) LYMPHOCYTES ABSOLUTE COUNT (BEAKER) (test 0.67 K/ L 1.32-3.57 zsrb=390) MONOCYTES ABSOLUTE COUNT (BEAKER) (test 0.34 K/ L 0.30-0.82 aelf=506) EOSINOPHILS ABSOLUTE COUNT (BEAKER) (test 0.14 K/ L 0.04-0.54 elek=829) BASOPHILS ABSOLUTE COUNT (BEAKER) (test 0.01 K/ L 0.01-0.08 pjji=605) IMMATURE GRANULOCYTES-RELATIVE PERCENT (BEAKER) 0 % 0-1 (test ugbo=1945)
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
[2019-02-02 07:31] VITALS: BP 142/99; TEMP 98.2; O2SAT 100
== END 2019-02-02 07:27 | disposition home or self-care (01) ==
LOC: ER 06:51
DX: T36.8X5A Adverse effect of other systemic antibiotics, initial encounter (principal); R21 Rash and other nonspecific skin eruption; I10 Essential (primary) hypertension; Z88.0 Allergy status to penicillin
CPT/HCPCS: 99282

== ENCOUNTER 2019-02-10 05:12 | Emergency (ER) | payer MEDICARE ==
--- OUTSIDE RECORDS SUMMARY | 2019-02-10 05:15 | XMS REPORT | Clinical Summary ---
:1945 Author Organization [facility] Address [address] [place] [address] Care Team Providers Name Role Phone Unavailable Primary Care Provider Unavailable Allergies Active Allergy Reactions Severity Noted Date Comments Penicillins Hives 01/27/2019 Medications Medication Sig Dispensed Refills Start Date End Date Status carvedilol (COREG) Take 12.5 mg by 0 Active 12.5 MG tablet mouth 2 (two) times daily with breakfast and dinner. levoFLOXacin Take 1 tablet 8 tablet 0 01/29/2019 Discontinued (LEVAQUIN) 500 MG (500 mg total) 9 tablet by mouth daily for 8 days. acetaminophen-code Take 1 tablet 30 tablet 0 01/29/2019 Discontinued ine (TYLENOL #3) by mouth every 9 300-30 mg per 4 (four) hours tablet as needed for up to 10 days. Max Daily Amount: 6 tablets acetaminophen-code Take 1 tablet 30 tablet 0 01/29/2019 ine (TYLENOL #3) by mouth every 9 300-30 mg per 4 (four) hours tablet as needed for up to 10 days. Max Daily Amount: 6 tablets clindamycin Take 1 capsule 28 capsule 0 01/31/2019 (CLEOCIN) 300 MG (300 mg total) 9 capsule by mouth 4 (four) times daily for 7 days. Active Problems Problem Noted Date Hand abscess 01/27/2019 Essential hypertension 01/27/2019 Class 1 obesity with body mass index (BMI) of 33.0 to 33.9 in adult 01/27/2019 Encounters Date Type Specialty Care Team Description 01/27/2019 Anesthesia Event Bri Mason, LEAD MECHANICAL ENGINEER 01/27/2019 Surgery Bisi Soriano/I&D,SANDRA Hugo MD D EXTREMITY UPPER 01/27/2019 - Hospital Encounter General Internal Caren Lares Hand abscess (Primary Dx); 01/29/2019 Medicine MD Kane Class 1 obesity due to excess calories without serious comorbidity with body mass index (BMI) of 33.0 to 33.9 in adult; Uday Ocampo Essential hypertension GNova, MD Haro, Declan Sanchez MD 01/27/2019 Travel after 02/09/2018 Family History Relation Name Status Comments Father [...] left EXTREMITY UPPER PM CDT hand after 02/09/2018 Results Vancomycin level, trough (01/29/2019 8:19 AM CDT) Vancomycin Tr 11.8 10.0 - 20.0 ug/mL [facility] Specimen Blood Performing Organization Address City/State/Zipcode Phone Number [facility] [address] [place] [address] CENTER CBC with platelet count + automated diff (01/28/2019 5:39 AM CDT) WBC 7.5 3.5 - 10.5 K/L [facility] RBC 5.26 4.63 - 6.08 M/L [facility] Hemoglobin 15.3 13.7 - 17.5 GM/DL [facility] Hematocrit 47.0 40.1 - 51.0 % [facility] MCV 89.4 79.0 - 92.2 fL [facility] MCH 29.1 25.7 - 32.2 pg [facility] MCHC 32.6 32.3 - 36.5 GM/DL [facility] RDW 12.7 11.6 - 14.4 % [facility] Platelets 175 150 - 450 K/CU MM [facility] MPV 10.9 9.4 - 12.4 fL [facility] nRBC 0 0 - 0 /100 WBC [facility] % Neutros 84 % [facility] % Lymphs 9 % [facility] % Monos 5 % [facility] % Eos 2 % [facility] % Baso 0 % [facility] # Neutros 6.29 (H) 1.78 - 5.38 K/L [facility] # Lymphs 0.67 (L) 1.32 - 3.57 K/L [facility] # Monos 0.34 0.30 - 0.82 K/L [facility] # Eos 0.14 0.04 - 0.54 K/L [facility] # Baso 0.01 0.01 - 0.08 K/L [facility] Immature Granulocytes-Relative 0 0 - 1 % [facility] Specimen Blood Performing Organization Address City/State/Zipcode Phone Number [facility] [address] [place] [address] CENTER Basic Metabolic Panel (01/28/2019 5:39 AM CDT) Sodium 138 136 - 145 meq/L [facility] Potassium 4.1 3.5 - 5.1 meq/L [facility] Chloride 107 98 - 107 meq/L [facility] CO2 24 22 - 29 meq/L [facility] BUN 14 7 - 21 mg/dL [facility] Creatinine 0.73 0.57 - 1.25 mg/dL [facility] Glucose 105 70 - 105 mg/dL [facility] Calcium 8.7 8.4 - 10.2 mg/dL [facility] EGFR 106Comment: ESTIMATED GFR IS mL/min/1.73 sq m [facility] NOT ACCURATE CREATININE [facility] CLEARANCE IN PREDICTING GLOMERULAR FILTRATION RATE. ESTIMATED GFR IS NOT APPLICABLE FOR DIALYSIS PATIENTS. Specimen Blood Performing Organization Address [facility]/Zipcode Phone Number [address] [address] [phone] [place] Anaerobic culture (01/27/2019 4:54 PM CDT) Result No anaerobes isolated [facility] Specimen Wound Performing Organization Address [facility]/Zipcode Phone Number [address] [address] [place] Surgically obtained culture + gram stain (01/27/2019 4:54 PM CDT) Result STAPHYLOCOCCUS AUREUS (A) [facility] Gram Stain Result <1+ White blood cells seen [facility] Gram Stain Result No organisms seen [facility] Specimen Wound Organism Antibiotic Method Susceptibility Staphylococcus aureus Clindamycin >=4: Resistant Staphylococcus aureus Erythromycin >=8: Resistant Staphylococcus aureus Linezolid 2: Susceptible Staphylococcus aureus Oxacillin <=0.25: Susceptible Staphylococcus aureus Rifampin <=0.5: Susceptible Staphylococcus aureus Tetracycline <=1: Susceptible Staphylococcus aureus Trimethoprim + Sulfamethoxazole <=10: Susceptible Staphylococcus aureus Vancomycin 1: Susceptible Performing Organization Address [facility] Phone Number [address] [address] [phone] [place] SPIN/CONCENTRATION CHARGE (01/27/2019 4:54 PM CDT) Concentration charged Done [facility] Specimen Wound Performing Organization Address [facility]/Zipcode Phone Number [address] [address] CENTER after 02/09/2018 Insurance Payer Benefit Plan / Group Subscriber ID Type Phone Address [facility] - MEDICARE AARP/MEDICARE COMPLETE xxxxxxxxx [facility]GD CARE Advance Directives For more information, please contact:[address] [phone] Code Status Date Activated Date Inactivated Comments Full Code 01/27/2019 1:43 PM 01/29/2019 4:10 PM This code status was determined by: Patient
--- OUTSIDE RECORDS SUMMARY | 2019-02-10 05:15 | XMS REPORT ---
:1945 Author Organization [facility] Address [address] [place] [address] Dr. Engle [address] [place] [address] Care Team Providers Name Role Phone JODEE URIAS Unavailable Unavailable Problems This patient has no known problems. Allergies, Adverse Reactions, Alerts This patient has no known allergies or adverse reactions. Medications This patient has no known medications. Results Test Description Test Time Test Comments Text Results Atomic Results Result Comments ANAEROBIC CULTURE 2019-01-31 03:00:00 Test Item Value Reference Range Comments CULTURE (BEAKER) (test ncet=2193) No anaerobes isolated SURGICALLY OBTAINED CULTURE + GRAM [id number] 11:09:00 Test Item Value Reference Range Comments CULTURE (BEAKER) (test STAPHYLOCOCCUS AUREUS 2+ Staphylococcus uadr=0366) aureus Clindamycin (test code=10) Erythromycin (test code=4) Linezolid (test code=40) Nitrofurantoin (test code=23) Oxacillin (test code=14) Rifampin (test code=43) Tetracycline (test code=2) Trimethoprim + Sulfamethoxazole (test code=47) Vancomycin (test code=13) GRAM STAIN RESULT <1+ White blood cells (BEAKER) (test ctfe=8609) seen GRAM STAIN RESULT No organisms seen (BEAKER) (test utaj=575703) VANCOMYCIN LEVEL, [id number] 08:51:00 Test Item Value Reference Range Comments VANCOMYCIN TROUGH (BEAKER) (test phoh=873) 11.8 ug/mL 10.0-20.0 SPIN/CONCENTRATION [id number] 15:13:00 Test Item Value Reference Range Comments CONCENTRATION CHARGED (BEAKER) (test bwwy=7736) Done BASIC METABOLIC [id number] 07:15:00 Test Item Value Reference Range Comments SODIUM (BEAKER) (test 138 meq/L 136-145 rfag=196) POTASSIUM (BEAKER) (test 4.1 meq/L 3.5-5.1 nkwv=549) CHLORIDE (BEAKER) (test 107 meq/L 98-107 qujb=854) CO2 (BEAKER) (test 24 meq/L 22-29 fwoo=270) BLOOD UREA NITROGEN 14 mg/dL 7-21 (BEAKER) (test gsvi=431) CREATININE (BEAKER) (test 0.73 mg/dL 0.57-1.25 jbdq=245) GLUCOSE RANDOM (BEAKER) 105 mg/dL 70-105 (test xznq=390) CALCIUM (BEAKER) (test 8.7 mg/dL 8.4-10.2 igjc=227) EGFR (BEAKER) (test 106 mL/min/1.73 sq m ESTIMATED GFR IS NOT nywf=5515) ACCURATE CREATININE CLEARANCE IN PREDICTING GLOMERULAR FILTRATION RATE. ESTIMATED GFR IS NOT APPLICABLE FOR DIALYSIS PATIENTS. CBC W/PLT COUNT & AUTO [id number] 06:51:00 Test Item Value Reference Range Comments WHITE BLOOD CELL COUNT (BEAKER) (test vsks=711) 7.5 K/ L 3.5-10.5 RED BLOOD CELL COUNT (BEAKER) (test fhwr=739) 5.26 M/ L 4.63-6.08 HEMOGLOBIN (BEAKER) (test tjnj=998) 15.3 GM/DL 13.7-17.5 HEMATOCRIT (BEAKER) (test axaq=855) 47.0 % 40.1-51.0 MEAN CORPUSCULAR VOLUME (BEAKER) (test pzcg=920) 89.4 fL 79.0-92.2 MEAN CORPUSCULAR HEMOGLOBIN (BEAKER) (test 29.1 pg 25.7-32.2 rujx=718) MEAN CORPUSCULAR HEMOGLOBIN CONC (BEAKER) (test 32.6 GM/DL 32.3-36.5 myeb=227) RED CELL DISTRIBUTION WIDTH (BEAKER) (test 12.7 % 11.6-14.4 lhkx=803) PLATELET COUNT (BEAKER) (test tnfx=436) 175 K/CU MM 150-450 MEAN PLATELET VOLUME (BEAKER) (test fjak=379) 10.9 fL 9.4-12.4 NUCLEATED RED BLOOD CELLS (BEAKER) (test 0 /100 WBC 0-0 omkm=746) NEUTROPHILS RELATIVE PERCENT (BEAKER) (test 84 % oalc=389) LYMPHOCYTES RELATIVE PERCENT (BEAKER) (test 9 % ohna=190) MONOCYTES RELATIVE PERCENT (BEAKER) (test 5 % irzy=730) EOSINOPHILS RELATIVE PERCENT (BEAKER) (test 2 % orkm=986) BASOPHILS RELATIVE PERCENT (BEAKER) (test 0 % vrah=858) NEUTROPHILS ABSOLUTE COUNT (BEAKER) (test 6.29 K/ L 1.78-5.38 ywqv=703) LYMPHOCYTES ABSOLUTE COUNT (BEAKER) (test 0.67 K/ L 1.32-3.57 psdc=478) MONOCYTES ABSOLUTE COUNT (BEAKER) (test 0.34 K/ L 0.30-0.82 pknq=512) EOSINOPHILS ABSOLUTE COUNT (BEAKER) (test 0.14 K/ L 0.04-0.54 zdkr=120) BASOPHILS ABSOLUTE COUNT (BEAKER) (test 0.01 K/ L 0.01-0.08 bzxg=176) IMMATURE GRANULOCYTES-RELATIVE PERCENT (BEAKER) 0 % 0-1 (test gsoq=3150)
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
[2019-02-10] MEDS ORDERED: DOXYCYCLINE 100 MG CAP PO ONE (06:02)
[2019-02-10] MEDS ORDERED: SMZ./TMP. 800/160 MG TABLET ONE (06:02)
[2019-02-10 06:06] VITALS: BP 132/96; TEMP 98.1; O2SAT 96
== END 2019-02-10 05:54 | disposition home or self-care (01) ==
LOC: ER 05:12
DX: L03.012 Cellulitis of left finger (principal); L03.124 Acute lymphangitis of left upper limb; I10 Essential (primary) hypertension; Z88.0 Allergy status to penicillin; Z88.1 Allergy status to other antibiotic agents; Z88.3 Allergy status to other anti-infective agents
CPT/HCPCS: 99283

== ENCOUNTER 2019-09-04 12:13 | Observation (INO) | payer MEDICARE ==
--- OUTSIDE RECORDS SUMMARY | 2019-09-04 12:16 | XMS REPORT ---
:1945 [facility] Address [address] [place] [address] Dr. Engle [address] [place] [id number] Care Team Providers Name Role Phone JODEE URIAS Unavailable Unavailable Problems This patient has no known problems. Allergies, Adverse Reactions, Alerts This patient has no known allergies or adverse reactions. Medications This patient has no known medications. Results Test Description Test Time Test Comments Text Results Atomic Results Result Comments AFB CULTURE + SMEAR 2019-03-11 19:20:00 Test Item Value Reference Range Comments CULTURE (BEAKER) (test zydx=5536) No acid-fast bacilli isolated in 42 days AFB SMEAR (BEAKER) (test cnls=574) No acid fast bacilli seen FUNGUS CULTURE + [id number] 16:15:00 Test Item Value Reference Range Comments CULTURE (BEAKER) (test No fungus isolated in 28 days fnlx=8137) FUNGUS SMEAR (BEAKER) (test No fungi seen otzo=1360) ANAEROBIC [id number] 03:00:00 Test Item Value Reference Range Comments CULTURE (BEAKER) (test tnrw=3848) No anaerobes isolated SURGICALLY OBTAINED CULTURE + GRAM [id number] 11:09:00 Test Item Value Reference Range Comments CULTURE (BEAKER) (test STAPHYLOCOCCUS AUREUS 2+ Staphylococcus ycyn=1749) aureus Clindamycin (test code=10) Erythromycin (test code=4) Linezolid (test code=40) Nitrofurantoin (test code=23) Oxacillin (test code=14) Rifampin (test code=43) Tetracycline (test code=2) Trimethoprim + Sulfamethoxazole (test code=47) Vancomycin (test code=13) GRAM STAIN RESULT <1+ White blood cells (BEAKER) (test sugm=0586) seen GRAM STAIN RESULT No organisms seen (BEAKER) (test vlew=[id number]) VANCOMYCIN LEVEL, [id number] 08:51:00 Test Item Value Reference Range Comments VANCOMYCIN TROUGH (BEAKER) (test vgkx=643) 11.8 ug/mL 10.0-20.0 SPIN/CONCENTRATION [id number] 15:13:00 Test Item Value Reference Range Comments CONCENTRATION CHARGED (BEAKER) (test vgzi=1868) Done BASIC METABOLIC [id number] 07:15:00 Test Item Value Reference Range Comments SODIUM (BEAKER) (test 138 meq/L 136-145 asfa=762) POTASSIUM (BEAKER) (test 4.1 meq/L 3.5-5.1 siwq=451) CHLORIDE (BEAKER) (test 107 meq/L 98-107 nrub=057) CO2 (BEAKER) (test 24 meq/L 22-29 zksm=925) BLOOD UREA NITROGEN 14 mg/dL 7-21 (BEAKER) (test aabp=696) CREATININE (BEAKER) (test 0.73 mg/dL 0.57-1.25 rayr=842) GLUCOSE RANDOM (BEAKER) 105 mg/dL 70-105 (test eisj=008) CALCIUM (BEAKER) (test 8.7 mg/dL 8.4-10.2 xhqo=674) EGFR (BEAKER) (test 106 mL/min/1.73 sq m ESTIMATED GFR IS NOT fwkg=1230) ACCURATE CREATININE CLEARANCE IN PREDICTING GLOMERULAR FILTRATION RATE. ESTIMATED GFR IS NOT APPLICABLE FOR DIALYSIS PATIENTS. CBC W/PLT COUNT & AUTO [id number] 06:51:00 Test Item Value Reference Range Comments WHITE BLOOD CELL COUNT (BEAKER) (test wyfj=375) 7.5 K/ L 3.5-10.5 RED BLOOD CELL COUNT (BEAKER) (test zlqg=193) 5.26 M/ L 4.63-6.08 HEMOGLOBIN (BEAKER) (test bvzj=858) 15.3 GM/DL 13.7-17.5 HEMATOCRIT (BEAKER) (test bwfj=183) 47.0 % 40.1-51.0 MEAN CORPUSCULAR VOLUME (BEAKER) (test bpbs=715) 89.4 fL 79.0-92.2 MEAN CORPUSCULAR HEMOGLOBIN (BEAKER) (test 29.1 pg 25.7-32.2 xptz=787) MEAN CORPUSCULAR HEMOGLOBIN CONC (BEAKER) (test 32.6 GM/DL 32.3-36.5 yqyn=646) RED CELL DISTRIBUTION WIDTH (BEAKER) (test 12.7 % 11.6-14.4 rcxu=659) PLATELET COUNT (BEAKER) (test ikjh=178) 175 K/CU MM 150-450 MEAN PLATELET VOLUME (BEAKER) (test fhwy=932) 10.9 fL 9.4-12.4 NUCLEATED RED BLOOD CELLS (BEAKER) (test 0 /100 WBC 0-0 jyuy=443) NEUTROPHILS RELATIVE PERCENT (BEAKER) (test 84 % pneg=819) LYMPHOCYTES RELATIVE PERCENT (BEAKER) (test 9 % xsac=925) MONOCYTES RELATIVE PERCENT (BEAKER) (test 5 % dhtq=447) EOSINOPHILS RELATIVE PERCENT (BEAKER) (test 2 % nwht=965) BASOPHILS RELATIVE PERCENT (BEAKER) (test 0 % vfrj=196) NEUTROPHILS ABSOLUTE COUNT (BEAKER) (test 6.29 K/ L 1.78-5.38 kclv=758) LYMPHOCYTES ABSOLUTE COUNT (BEAKER) (test 0.67 K/ L 1.32-3.57 mvpe=875) MONOCYTES ABSOLUTE COUNT (BEAKER) (test 0.34 K/ L 0.30-0.82 byiv=280) EOSINOPHILS ABSOLUTE COUNT (BEAKER) (test 0.14 K/ L 0.04-0.54 fclb=108) BASOPHILS ABSOLUTE COUNT (BEAKER) (test 0.01 K/ L 0.01-0.08 bbtn=273) IMMATURE GRANULOCYTES-RELATIVE PERCENT (BEAKER) 0 % 0-1 (test nqmi=5783)
--- NOTE | 2019-09-04 13:37 | RAD REPORT ---
EXAM DESCRIPTION: RAD - Chest Pa And Lat (2 Views) - 09/04/2019 1:33 pm CLINICAL HISTORY: COUGH Chest pain. COMPARISON: Chest Single View dated 10/29/2018; Chest Single View dated 12/18/2016; CHEST SINGLE VIEW dated 09/12/2013; CHEST SINGLE VIEW dated 09/09/2013 FINDINGS: Mild poorly defined lung opacities are present in both lung bases, likely representing mil d pneumonia. The heart is mildly enlarged in size. No displaced fractures. IMPRESSION: Mild bibasilar pneumonia.
[2019-09-04] MEDS ORDERED: IBUPROFEN 400 MG TAB ONE (14:51)
[2019-09-04] MEDS ORDERED: NA CHLORIDE 0.9% 500 ML ONE (14:51)
[2019-09-04] MEDS ORDERED: LEVALBUTEROL 1.25 MG/3 ML NEB ONE (14:51)
[2019-09-04 15:19] LABS: Absolute Lymphocytes (CBC) 1.7 K/uL (0.7-4.9); Basophils % 0.5 % (0-1.3); Lymphocytes % 11.1 % (15.3-44.8); MPV 9.4 fL (7.6-11.3)
[2019-09-04] MEDS ORDERED: DOXYCYCLINE 100 MG CAP PO ONE (15:28)
[2019-09-04] MEDS ORDERED: CEFTRIAXONE/SWI 1gm 1 GM/10 ML SYR ONE (15:28)
[2019-09-04 15:32] LABS: Potassium 3.7 mmol/L (3.5-5.1)
[2019-09-04 16:09] LABS: Urine Blood TRACE (NEG); Urine Glucose NEGATIVE (NEG); Urine Protein 1+ (NEG); Urine Specific Gravity >1.030 (1.005-1.030); Urine pH 5.5 (5.0-7.0)
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
[2019-09-04 16:21] LABS: Urine Bacteria <20 /HPF (NONE SEEN); Urine Culture Reflex Order NOT NEEDED; Urine RBC <5 /HPF (NONE SEEN)
[2019-09-04 16:22] LABS: Urine Mucus HEAVY /HPF (NONE SEEN)
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
[2019-09-04] MEDS ORDERED: ALBUTEROL 2.5 MG/3 ML NEB SOL NEB PRN (18:05)
[2019-09-04] MEDS ORDERED: ONDANSETRON 4 MG/2 ML VIAL IV PRN (18:05)
[2019-09-04] MEDS ORDERED: IPRATROPIUM BROM 0.5MG/2.5ML NEB PRN (18:05)
[2019-09-04 18:37] VITALS: BMI 34.3
[2019-09-04] MEDS: HYDROCODONE/CHLORPHEN 5 ML/OSYR PO PRN (21:43)
[2019-09-05] MEDS ORDERED: CEFTRIAXONE/SWI 1gm 1 GM/10 ML SYR ONE (02:44)
[2019-09-05] MEDS ORDERED: CEFTRIAXONE 1 GM/NS 50 ML 1 GM/50 ML BAG IV SCH (03:30)
[2019-09-05] MEDS ORDERED: CEFTRIAXONE/SWI 1gm 1 GM/10 ML SYR IV SCH (03:30)
[2019-09-05 06:18] LABS: Absolute Lymphocytes (CBC) 1.2 K/uL (0.7-4.9); Basophils % 0.2 % (0-1.3); Hematocrit 41.7 % (39.6-49.0); Lymphocytes % 13.6 % (15.3-44.8); MPV 9.9 fL (7.6-11.3); RBC Red Blood Cell Count 4.73 M/uL (4.33-5.43)
[2019-09-05 06:27] LABS: Albumin 3.2 g/dL (3.4-5.0); Bilirubin Total 0.7 mg/dL (0.2-1.0); Magnesium 2.2 mg/dL (1.8-2.4); Phosphorus 1.7 mg/dL (2.5-4.9); Potassium 3.3 mmol/L (3.5-5.1); Protein, Total 6.6 g/dL (6.4-8.2)
[2019-09-05] MEDS ORDERED: PNEUMOCOCCAL VACCINE 0.5 ML IMVAC ONE (07:00)
[2019-09-05] MEDS: AZITHROMYCIN IV 500 MG in NA CHLORIDE 0.9% 250 ML IVPB SCH (08:57)
[2019-09-05] MEDS: POTASS/SODIUM PHOSPHATE 1 PKT POWD.PACK PO SCH ×3 (08:57→12:03)
[2019-09-05] MEDS: CEFTRIAXONE/SWI 1gm 1 GM/10 ML SYR IV SCH ×2 (08:58→21:30)
[2019-09-05] MEDS ORDERED: POTASSIUM CL SA 10 MEQ TAB PO ONE (09:00)
[2019-09-05] MEDS: HYDROCODONE/CHLORPHEN 5 ML/OSYR PO PRN ×2 (09:04→23:36)
--- NOTE | 2019-09-05 10:37 | RAD REPORT ---
EXAM DESCRIPTION: CT - Thorax W/ Con CLINICAL HISTORY: Chest pain Pneumonia/concern for COPD COMPARISON: Chest Pa And Lat (2 Views) dated 09/04/2019 FINDINGS: Mild COPD is present. Reticulonodular infiltrates are present in both lungs, greatest in t he lower lobe on the left suggesting atypical infection/ pneumonia. No pleural thickening or pleural effusion. No pneumothorax. No significant axillary, mediastinal or hilar adenopathy. No concerning bony finding. No gross upper abdominal finding. All CT scans are performed using dose optimization technique as appropriate and may include automated exposure control or mA/KV adjustment according to patient size. IMPRESSION: Mild reticulonodular infiltrates are present bilaterally, greatest in the left lower judi g. Findings are suggestive of a mild atypical infection. Mild COPD.
[2019-09-05] MEDS: METHYLPREDNISOLONE 125 MG INJ IV SCH ×3 (11:05→21:31)
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
--- NOTE | 2019-09-05 12:16 | P.PN ---
Subjective Date of Service: 09/05/19 Chief Complaint: SOB She would persistent coughing. Still feeling very congested. CT scan just revealed a reticulonodular infiltrated pattern most likely an atypical infection. Patient also has some mild COPD changes. He has had a 30+ pack- year smoking history. Patient also had diffuse end expiratory wheezing. Dr. Bull saw patient this morning and recommended discharge tomorrow on oral Doxycycline. Anticipate discharge home in a.m.. Review of Systems 10-point ROS is otherwise unremarkable Physical Examination - Vital Signs Temperature: 99.1 F Blood Pressure: 155/87 Pulse: 84 Respirations: 20 Pulse Ox (%): 92 - Physical Exam General: Alert, In no apparent distress, Oriented x3 Respiratory: Diminished, Expiratory wheezes Cardiovascular: Regular rate/rhythm, Normal S1 S2, No murmurs Gastrointestinal: Normal bowel sounds, Soft and benign, Non-distended, No tenderness Musculoskeletal: No clubbing, No swelling, No tenderness Integumentary: No rashes Neurological: Normal speech, Normal tone, Sensation intact, Cranial nerves 3-12 intact, Normal affect Lymphatics: No axilla or inguinal lymphadenopathy - Studies Laboratory Data (last 24 hrs) 09/04/19 15:05: Sodium 139, Potassium 3.7, BUN 14, Creatinine 0.95, Glucose 118 H 09/04/19 15:05: WBC 15.3 H, Hgb 15.4, Hct 47.0, Plt Count 136 L Microbiology Data (last 24 hrs): 09/04/19 12:26 Nasopharnyx Influenza Type A Antigen Screen - Final 09/04/19 12:26 Nasopharnyx Influenza Type B Antigen Screen - Final 09/04/19 12:26 Throat Group A Streptococcus Rapid Screen - Final Medications List Reviewed: Yes Assessment & Plan - Problems (Diagnosis) (1) Atypical pneumonia Current Visit: Yes Status: Acute (2) COPD (chronic obstructive pulmonary disease) Current Visit: Yes Status: Acute (3) Persistent cough Current Visit: Yes Status: Acute (4) HTN (hypertension) Onset Date: 10/30/18 Current Visit: No Status: Chronic Qualifiers: Hypertension type: essential hypertension - Plan Plan: 1. CT scan with atypical pneumonia. Most likely viral since negative procalcitonin. Pulmonary recommends doxycycline at discharge. 2. Patient will need outpatient pulmonary function testing. He will need to follow with Pulmonary for further evaluation. 3. On discharge will go ahead and give him a albuterol/Combivent inhaler. 4. Out of bed and ambulate; check room air O2 sats at rest and exertion 5. GI and DVT prophylaxis Discharge Plan: Home Plan to discharge in: 24 Hours - Advance Directives Does patient have a Living Will: Yes Does patient have a Durable POA for Healthcare: No - Code Status/Comfort Care Code Status Assessed: Yes Code Status: Full Code Critical Care: No Time Spent Managing PTS Care (In Minutes): 35
[2019-09-05 17:06] LABS: Potassium 4.1 mmol/L (3.5-5.1)
[2019-09-05] MEDS: carvediloL 12.5 MG TAB PO SCH (18:27)
[2019-09-06 06:03] LABS: Albumin 3.2 g/dL (3.4-5.0); Bilirubin Total 0.4 mg/dL (0.2-1.0); Phosphorus 2.8 mg/dL (2.5-4.9); Potassium 3.9 mmol/L (3.5-5.1); Protein, Total 6.9 g/dL (6.4-8.2)
[2019-09-06] MEDS: carvediloL 12.5 MG TAB PO SCH (06:14)
[2019-09-06 06:15] LABS: Absolute Lymphocytes (CBC) 0.7 K/uL (0.7-4.9); Hematocrit 43.7 % (39.6-49.0); Lymphocytes % 6.4 % (15.3-44.8); MPV 10.1 fL (7.6-11.3); RBC Red Blood Cell Count 4.95 M/uL (4.33-5.43)
[2019-09-06 08:58] LABS: Blood Morphology Comment NOT SEEN (NOT SEEN); Platelet Estimate ADEQ
[2019-09-06] MEDS ORDERED: POTASSIUM 25 MEQ EFFERV TAB PO ONE (09:00)
[2019-09-06] MEDS: AZITHROMYCIN IV 500 MG in NA CHLORIDE 0.9% 250 ML IVPB SCH (09:17)
[2019-09-06] MEDS: CEFTRIAXONE/SWI 1gm 1 GM/10 ML SYR IV SCH (09:21)
[2019-09-06 09:23] VITALS: TEMP 98.5
--- NOTE | 2019-09-06 12:07 | P.DS ---
Discharge Date: 09/06/19 Primary Care Provider: Dr Ambrose Disposition: ROUTINE DISCHARGE Discharge Condition: GOOD Reason for Admission: SOB - Problems (1) Atypical pneumonia Status: Acute (2) COPD (chronic obstructive pulmonary disease) Status: Acute (3) Persistent cough Status: Acute (4) HTN (hypertension) Onset Date: 10/30/18 Status: Chronic Qualifiers: Hypertension type: essential hypertension Qualified Code(s): I10 - Essential (primary) hypertension Brief History of Present Illness: This is a 74 y/o M with Pmhx of HTN who presented to the ED with complains of Cough, Fever and sore throat. Pt states his symptoms started yesterday and have gotten progressively worse. Cough is productive in nature. Fever was 99.8. Patient has also been having some headache due to coughing and has been having urinary problems as well. Patient denies having any sick contacts or recent travel anywhere. No other complaints to offer at this time. In the ER patient had extensive lab work and imaging done. Was found to have mild bibasilar pneumonia and thus was admitted to the hospital for further care. Hospital Course: Patient is doing well. Plan to discharge on antibiotics with outpt follow-up. Vital Signs/Physical Exam: Temp Pulse Resp BP Pulse Ox 98.5 F 102 H 20 135/79 92 09/06/19 08:00 09/06/19 08:00 09/06/19 08:00 09/06/19 08:00 09/06/19 08:00 General: Alert, In no apparent distress, Oriented x3 Laboratory Data at Discharge: WBC 11.2 K/uL (4.3-10.9) H D 09/06/19 05:34 Hgb 14.7 g/dL (13.6-17.9) 09/06/19 05:34 Hct 43.7 % (39.6-49.0) 09/06/19 05:34 Plt Count 150 K/uL (152-406) L D 09/06/19 05:34 Sodium 142 mmol/L (136-145) 09/06/19 05:34 Potassium 3.9 mmol/L (3.5-5.1) 09/06/19 05:34 BUN 18 mg/dL (7-18) 09/06/19 05:34 Creatinine 0.87 mg/dL (0.55-1.3) 09/06/19 05:34 Glucose 165 mg/dL (74-106) H 09/06/19 05:34 Phosphorus 2.8 mg/dL (2.5-4.9) D 09/06/19 05:34 Magnesium 2.2 mg/dL (1.8-2.4) 09/05/19 05:30 Total Bilirubin 0.4 mg/dL (0.2-1.0) 09/06/19 05:34 AST 8 U/L (15-37) L 09/06/19 05:34 ALT 21 U/L (12-78) 09/06/19 05:34 Alkaline Phosphatase 59 U/L (45-117) 09/06/19 05:34 Home Medications: carvediloL [Carvedilol] 12.5 mg PO BID 10/30/18 Doxycycline Hyclate 100 mg PO BID #14 tablet 09/05/19 Hydrocodone/Chlorphen Polis [Tussionex Oral Susp] 5 ml PO Q12HR #100 ml Albuterol Neb [Proventil 0.083% Neb Soln] 2.5 mg NEB Q6H #60 amp 09/06/19 Ipratropium Neb [Atrovent*] 0.2 mg NEB Q6H #60 amp 09/06/19 New Medications: Albuterol Neb [Proventil 0.083% Neb Soln] 2.5 mg NEB Q6H #60 amp Doxycycline Hyclate 100 mg PO BID #14 tablet Hydrocodone/Chlorphen Polis [Tussionex Oral Susp] 5 ml PO Q12HR #100 ml Ipratropium Neb [Atrovent*] 0.2 mg NEB Q6H #60 amp Patient Discharge Instructions: OK TO DC IV AND DC HOME. FOLLOW-UP WITH PRIMARY CARE PROVIDER IN 1-2 WEEKS. FOLLOW-UP WITH PULMONARY IN 1-2 WEEKS; patient will need outpatient pulmonary function testing for evaluation of COPD. RETURN TO THE ER IF symptoms worsen. CALL or TEXT DR. WASHINGTON AT [phone] IF ANY QUESTIONS REGARDING HOSPITAL STAY. PLEASE CALL THE FLOOR AT IF ANY MEDICATION OR NURSING QUESTIONS. Diet: Regular Activity: Fall precautions Followup: Braeden Trimble MD [ACTIVE - CAN ADMIT] - Vega Ambrose MD [Primary Care Provider] - Time spent managing pt's care (in minutes): 30
[2019-09-06 12:34] VITALS: BP 157/79
[2019-09-06 13:59] VITALS: O2SAT 95
== END 2019-09-06 14:11 | disposition home or self-care (01) ==
LOC: ER 12:13 → ERHOLD 16:22 → 2ND 17:56
PROVIDERS: ADMIT Family Medicine; ATTEND Family Medicine
DX: J18.9 Pneumonia, unspecified organism (principal); J44.0 Chronic obstructive pulmonary disease with (acute) lower respiratory infection; I10 Essential (primary) hypertension; M21.371 Foot drop, right foot; Z85.46 Personal history of malignant neoplasm of prostate; Z88.0 Allergy status to penicillin
CPT/HCPCS: 96365; 87040 ×2; 87070 ×2; 87088; 85025 ×3; 87086; 80048; 36415 ×2; 83735; 87205; 84100 ×2; 84132; 82947 ×2; 87081; 83605; 80053 ×2; 84145; 83880; 87804 ×2; 71260; 71046; 94760 ×4; 99285; Q9967; J0456 ×2; J0696 ×5; J7030 ×2; J7040; J2930 ×3; G0378 ×4; 81003; 81015

== ENCOUNTER 2020-03-26 13:32 | Emergency (ER) | payer MEDICARE ==
[2020-03-26] MEDS ORDERED: MORPHINE 4 MG/ML SYR ONE ×2 (14:15→16:03)
[2020-03-26] MEDS ORDERED: ONDANSETRON 4 MG/2 ML VIAL ONE (14:15)
--- NOTE | 2020-03-26 14:48 | RAD REPORT ---
EXAM DESCRIPTION: CT - Stone Protocol - 03/26/2020 2:13 pm CLINICAL HISTORY: left abd pain COMPARISON: Thorax W/ Con dated 09/05/2019 TECHNIQUE: Axial 3 mm thick images were obtained without oral or IV contrast. The [id number] span s the entirety of the system including uppermost abdomen and lung bases. All CT scans are performed using dose optimization technique as appropriate and may include automated exposure control or mA/KV adjustment according to patient size. FINDINGS: Moderate hydronephrosis is present involving the pelvis, calices and proximal ureter. Padmini ent has a 5 millimeter proximal ureter stone. Left kidney is edematous. There is stranding in the per inephric fat and adjacent to the proximal collecting system. No other obstructing or nonobstructing c alculi seen. In the inferior left renal sinus there is a 2.5 centimeter oval focus of tissue. This is probably a combination of dilated lower pole calices and a prominent parapelvic cyst. The patient lawson s bilateral small parapelvic cysts. No mass in the renal parenchyma confirmed. Isodense masses and py elonephritis are not excluded. No significant adrenal finding. Urinary bladder is tightly contracted. No bladder calculi seen. Patient has a large fat filled right inguinal hernia at the origin of the i nguinal canal there is some stranding present with tethering or right lateral displacement of the dom e of the bladder towards the hernia. A smaller fat filled left inguinal hernia is present. The patient has a linear 5 centimeter long hyperdense focus along the dorsal aspect of the penis. Thi s may be part of an old implant. This is on the dorsal margin and therefore not within the urethra. Imaged portions of the liver, spleen and pancreas show no suspicious findings on non-contrast imaging . No gallbladder or biliary tree abnormality identified. No suspicious bowel findings. Mild to moderate sigmoid diverticulosis without diverticulitis. Minimal diverticulosis elsewhere. No mass or bulky lymphadenopathy. No free air or pneumatosis. Disc and bony degenerative change present throughout the lumbar spine and to a lesser degree the lowe r thoracic spine. IMPRESSION: [id number] left-sided hydronephrosis secondary to a proximal left ureter 5 mm ston e. From a KUB projection, the obstructing stone is along the left lateral margin of the L4-5 disc space. A 2.5 centimeter focus of tissue in the inferior left renal hilum may be the summation of a dilated c paige and a complex parapelvic cysts. Patient has bilateral parapelvic cysts. This can be re-evaluated on subsequent study following resolution of the obstruction. Additional nonacute findings detailed in the body of the report. Isodense masses and pyelonephritis are not excluded on stone protocol technique.
[2020-03-26 14:52] LABS: Absolute Lymphocytes (CBC) 0.9 K/uL (0.7-4.9); Basophils % 0.2 % (0-1.3); Hematocrit 47.6 % (39.6-49.0); Lymphocytes % 10.4 % (15.3-44.8); MPV 9.8 fL (7.6-11.3); RBC Red Blood Cell Count 5.36 M/uL (4.33-5.43)
[2020-03-26 14:55] LABS: Urine Bacteria <20 /HPF (NONE SEEN); Urine Culture Reflex Order NOT NEEDED; Urine RBC >50 /HPF (NONE SEEN)
[2020-03-26 15:00] LABS: Urine Blood 3+ (NEG); Urine Glucose NEGATIVE (NEG); Urine Protein 3+ (NEG); Urine pH 5.5 (5.0-7.0)
[2020-03-26 15:07] LABS: Bilirubin Direct 0.1 mg/dL (0-0.2); Bilirubin Total 0.5 mg/dL (0.2-1.0); Potassium 4.2 mmol/L (3.5-5.1); Protein, Total 7.5 g/dL (6.4-8.2)
[2020-03-26] MEDS ORDERED: TAMSULOSIN 0.4 MG SR CAP ONE (15:16)
[2020-03-26] MEDS ORDERED: MAGNESIUM SULFATE 1 gm IVPB 1 GM/100 ML BAG IV ONE (15:16)
--- OUTSIDE RECORDS SUMMARY | 2020-03-26 15:51 | XMS REPORT | Continuity of Care Document ---
:1945 Author Organization [facility] t Address [address] [place] [address] [address] [place] [address] Care Team Providers Name Role Phone Kane URIAS Attending Clinician Unavailable Freya DAVID Admitting Clinician Unavailable Problems Condition Condition Condition Status Onset Resolution Last Treating Co mments Source Name Details Category Date Date Treatment Clinician Date Hand Hand Disease Active [facility]: [facility] 00 [facility] Essential Essential Disease Active [facility] hypertensi hypertensi 01-27 Stephanie kes - on on 00:00: Medical 00 [facility] Class 1 Class [address] [facility] obesity obesity 01-27 [facility] - with body with body 00:00: Medi alexander mass index mass index 00 Ce nter (BMI) of (BMI) of 33.0 to 33.0 to 33.9 in 33.9 in adult adult Allergies, Adverse Reactions, Alerts Allergy Allergy Status Severity Reaction(s) Onset Inactive Treating Comm ents Source Name Type Date Date Clinician Penicill Propensi Active Hives [facility] 01-27 [facility] - adverse 00:00: Medical reaction 00 Center s Social History Social Habit Start Date Stop Date Quantity Comments Source History SDOH Alcohol [facility] St[facility] Dr[facility] History SDOH Alcohol [facility] - Binge [facility] Sex Assigned At [facility] St Stephanie kes - [facility] History SDOH Alcohol 2019-01-27 2019-01-[address] [facility] - Frequency 00:00:00 00:00:00 [facility] Alcohol Comment 2019-01-27 2019-01-27 remote [facility] Stephanie kes - 00:00:00 00:00:00 [facility] Smoking Status Start Date Stop Date Source Former smoker 2019-01-29 00:00:00 2019-01-29 00:00:[address] [facility] Medications Ordered Filled Start Stop Current Ordering Indication Dosage Frequency Signature Comments Components Source Medication Medication Date Date Medication? Clinician (SIG) Name Name andre 2018- Yes 12.5mg Take 12.[address] [facility] (COREG) 4-27 mg by [facility] - 12.5 MG 13:31: mouth 2 Medical tablet 28 (two) Center times daily with breakfast and dinner. Procedures This patient has no known procedures. Results Test Description Test Time Test Comments Results Result Comments Source SURGICALLY OBTAINED CULTURE + GRAM STAIN 2019-09-18 12:12:00 Test Item Value Reference Range Interpretation Comme nts CULTURE (BEAKER) (test code = STAPHYLOCOCCUS AUREUS A 2+ Staphylococcus aureus 1095) Clindamycin (test code = 10) R Erythromycin (test code = 4) R Linezolid (test code = 40) S Nitrofurantoin (test code = S 23) Oxacillin (test code = 14) S Rifampin (test code = 43) S Tetracycline (test code = 2) S Trimethoprim + S Sulfamethoxazole (test code = 47) Vancomycin (test code = 13) S GRAM STAIN RESULT (BEAKER) <1+ White blood cells seen (test code = 1123) GRAM STAIN RESULT (BEAKER) No organisms seen (test code = 399207) AFB CULTURE + [id number] 19:20:00 Test Item Value Reference Range Interpretation Comments CULTURE (BEAKER) (test No acid-fast bacilli code = 1095) isolated in 42 days AFB SMEAR (BEAKER) No acid fast bacilli (test code = 994) seen FUNGUS CULTURE + [id number] 16:15:00 Test Item Value Reference Range Interpretation Comments CULTURE (BEAKER) (test No fungus isolated in code = 1095) 28 days FUNGUS SMEAR (BEAKER) No fungi seen (test code = 1406) ANAEROBIC [id number] 03:00:00 Test Item Value Reference Range Interpretation Comments CULTURE (BEAKER) (test No anaerobes isolated code = 1095) VANCOMYCIN LEVEL, [id number] 08:51:00 Test Item Value Reference Range Interpretation Comments VANCOMYCIN TROUGH (BEAKER) (test 11.8 ug/mL 10.0-20.0 code = 522) SPIN/CONCENTRATION [id number] 15:13:00 Test Item Value Reference Range Interpretation Comments CONCENTRATION CHARGED (BEAKER) (test Done code = 2657) BASIC METABOLIC [id number] 07:15:00 Test Item Value Reference Range Interpretation Comments SODIUM (BEAKER) 138 meq/L 136-145 (test code = 381) POTASSIUM (BEAKER) 4.1 meq/L 3.5-5.1 (test code = 379) CHLORIDE (BEAKER) 107 meq/L 98-107 (test code = 382) CO2 (BEAKER) (test 24 meq/L 22-29 code = 355) BLOOD UREA NITROGEN 14 mg/dL 7-21 (BEAKER) (test code = 354) CREATININE (BEAKER) 0.73 mg/dL 0.57-1.25 (test code = 358) GLUCOSE RANDOM 105 mg/dL 70-105 (BEAKER) (test code = 652) CALCIUM (BEAKER) 8.7 mg/dL 8.4-10.2 (test code = 697) EGFR (BEAKER) (test 106 mL/min/1.73 ESTIM ATED GFR IS code = 1092) sq m NOT ACCURATE CREATININE CLEARANCE IN PREDICTING GLOMERULAR FILTRATION RATE . ESTIMATED GFR I S NOT APPLICABLE FOR DIALYSIS PATIEN TS. CBC W/PLT COUNT & AUTO [id number] 06:51:00 Test Item Value Reference Range Interpretation Comments WHITE BLOOD CELL COUNT (BEAKER) 7.5 K/ L 3.5-10.5 (test code = 775) RED BLOOD CELL COUNT (BEAKER) 5.26 M/ L 4.63-6.08 (test code = 761) HEMOGLOBIN (BEAKER) (test code = 15.3 GM/DL 13.7-17.5 410) HEMATOCRIT (BEAKER) (test code = 47.0 % 40.1-51.0 411) MEAN CORPUSCULAR VOLUME (BEAKER) 89.4 fL 79.0-92.2 (test code = 753) MEAN CORPUSCULAR HEMOGLOBIN 29.1 pg 25.7-32.2 (BEAKER) (test code = 751) MEAN CORPUSCULAR HEMOGLOBIN CONC 32.6 GM/DL 32.3-36.5 (BEAKER) (test code = 752) RED CELL DISTRIBUTION WIDTH 12.7 % 11.6-14.4 (BEAKER) (test code = 412) PLATELET COUNT (BEAKER) (test 175 K/CU MM 150-450 code = 756) MEAN PLATELET VOLUME (BEAKER) 10.9 fL 9.4-12.4 (test code = 754) NUCLEATED RED BLOOD CELLS 0 /100 WBC 0-0 (BEAKER) (test code = 413) NEUTROPHILS RELATIVE PERCENT 84 % (BEAKER) (test code = 429) LYMPHOCYTES RELATIVE PERCENT 9 % (BEAKER) (test code = 430) MONOCYTES RELATIVE PERCENT 5 % (BEAKER) (test code = 431) EOSINOPHILS RELATIVE PERCENT 2 % (BEAKER) (test code = 432) BASOPHILS RELATIVE PERCENT 0 % (BEAKER) (test code = 437) NEUTROPHILS ABSOLUTE COUNT 6.29 K/ L 1.78-5.38 H (BEAKER) (test code = 670) LYMPHOCYTES ABSOLUTE COUNT 0.67 K/ L 1.32-3.57 L (BEAKER) (test code = 414) MONOCYTES ABSOLUTE COUNT (BEAKER) 0.34 K/ L 0.30-0.82 (test code = 415) EOSINOPHILS ABSOLUTE COUNT 0.14 K/ L 0.04-0.54 (BEAKER) (test code = 416) BASOPHILS ABSOLUTE COUNT (BEAKER) 0.01 K/ L 0.01-0.08 (test code = 417) IMMATURE GRANULOCYTES-RELATIVE 0 % 0-1 PERCENT (BEAKER) (test code = 7661)
--- OUTSIDE RECORDS SUMMARY | 2020-03-26 15:51 | XMS REPORT | Clinical Summary ---
:1945 Author Organization [facility] Address [address] [place] [id number] Care Team Providers Name Role Phone Unavailable Primary Care Provider Unavailable Allergies Active Allergy Reactions Severity Noted Date Comments Penicillins Hives 01/27/2019 Medications Medication Sig Dispensed Refills Start Date End Date Status carvedilol (COREG) Take 12.5 mg by 0 Active 12.5 MG tablet mouth 2 (two) times daily with breakfast and dinner. Active Problems Problem Noted Date Hand abscess 01/27/2019 Essential hypertension 01/27/2019 Class 1 obesity with body mass index (BMI) of 33.0 to 33.9 in adult 01/27/2019 Family History Relation Name Status Comments Father [...] six or more drinks on one occasion? No t asked Sex Assigned at Date Recorded Not on file Job Start Date Occupation Industry Not on file Not on file Not on file Travel History Travel Start Travel End No recent travel history available. Last Filed Vital Signs Not on file Plan of Treatment Not on file Results Not on fileafter 03/26/2019 Insurance Payer Benefit Plan / Group Subscriber ID Type Phone A ddress [facility] - MEDICARE AAR/MEDICARE COMPLETE xxxxxxxxx MGD CARE Advance Directives For more information, please contact:[place] [address] [address] [place], [place] [phone] Code Status Date Activated Date Inactivated Comments Full Code 01/27/2019 1:43 PM 01/29/2019 4:10 PM This code status was determined by: Patient
[2020-03-26] MEDS ORDERED: KETOROLAC 30 MG/ML INJ ONE (16:18)
[2020-03-26 16:59] LABS: Urine Mucus 1+ /HPF (NONE SEEN)
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
[2020-03-26 19:53] VITALS: TEMP 98
[2020-03-26 19:59] VITALS: BP 150/76; O2SAT 99
== END 2020-03-26 18:50 | disposition home or self-care (01) ==
LOC: ER 13:32
DX: N13.2 Hydronephrosis with renal and ureteral calculous obstruction (principal); I10 Essential (primary) hypertension; Z88.0 Allergy status to penicillin; Z88.1 Allergy status to other antibiotic agents; Z88.3 Allergy status to other anti-infective agents
CPT/HCPCS: 96365; 85025; 80048; 36415; 80076; 83690; 76377; 74176; 96375; 99284; J3475; J2405; 81003; 81015

== ENCOUNTER 2020-04-01 09:55 | Emergency (ER) | payer MEDICARE ==
[2020-04-01] MEDS ORDERED: ONDANSETRON 4 MG/2 ML VIAL ONE (10:23)
[2020-04-01] MEDS ORDERED: MORPHINE 4 MG/ML SYR ONE (10:23)
[2020-04-01] MEDS ORDERED: NA CHLORIDE 0.9% 1,000 ML ONE (10:23)
[2020-04-01] MEDS ORDERED: KETOROLAC 30 MG/ML INJ ONE (10:25)
[2020-04-01 10:30] LABS: Basophils % 0.6 % (0-1.3); Hematocrit 46.2 % (39.6-49.0); Lymphocytes % 8.9 % (15.3-44.8); MPV 9.5 fL (7.6-11.3); RBC Red Blood Cell Count 5.21 M/uL (4.33-5.43)
[2020-04-01 10:42] LABS: Potassium 3.6 mmol/L (3.5-5.1)
--- NOTE | 2020-04-01 11:03 | RAD REPORT ---
EXAM DESCRIPTION: CT - Stone Protocol - 04/01/2020 10:28 am CLINICAL HISTORY: Abdominal pain. COMPARISON: March 26, 2020 TECHNIQUE: Computed axial tomography of the abdomen pelvis was obtained without oral or IV contrast. Lack of IV and oral contrast limits evaluation of solid organs, bowel, and vessels. Coronal reformat espinoza images were obtained and reviewed. All CT scans are performed using dose optimization technique as appropriate and may include automated exposure control or mA/KV adjustment according to patient size. FINDINGS: 5 millimeter calculus has migrated distally within the left ureter. It now lies within the proximal aspect of the distal left ureter. Hounsfield unit 1290. Moderate left hydronephrosis with p erirenal stranding. Parapelvic cysts bilaterally. Small hepatic cyst. 1Spleen, pancreas and adrenals appear grossly normal There is no evidence of diverticulitis. Small to moderate right small left inguinal hernias Internal radiation beams have been placed into periprostatic tissue IMPRESSION: A 5 millimeter distal left ureteral calculus resulting in moderate left hydronephrosis
[2020-04-01] MEDS ORDERED: MAGNESIUM SULFATE 1 gm IVPB 1 GM/100 ML BAG IV ONE (11:41)
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
[2020-04-01] MEDS ORDERED: CEFTRIAXONE/SWI 1gm 1 GM/10 ML SYR ONE (12:32)
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
--- OUTSIDE RECORDS SUMMARY | 2020-04-01 12:39 | XMS REPORT | Clinical Summary ---
:1945 Author Organization [facility] Address [address] [place] [id number] Care Team Providers Name Role Phone Unavailable [...] Not on file Results Not on fileafter 04/01/2019 Insurance Payer Benefit Plan / Group Subscriber ID Type Phone A ddress [facility] - MEDICARE AAR/MEDICARE COMPLETE xxxxxxxxx MGD CARE Advance Directives For more information, please contact:[place] [address] [place], [place] [phone] Code Status Date Activated Date Inactivated Comments Full Code 01/27/2019 1:43 PM 01/29/2019 4:10 PM This code status was determined by: Patient
[2020-04-01 12:58] VITALS: TEMP 98.2
[2020-04-01 12:59] VITALS: O2SAT 95
[2020-04-01 13:00] VITALS: BP 120/78
== END 2020-04-01 12:51 | disposition home or self-care (01) ==
LOC: ER 09:55
DX: N20.2 Calculus of kidney with calculus of ureter (principal); I10 Essential (primary) hypertension; Z88.0 Allergy status to penicillin; Z88.1 Allergy status to other antibiotic agents; Z88.3 Allergy status to other anti-infective agents
CPT/HCPCS: 96365; 96361; 85025; 80048; 36415; 76377; 74176; 96375; 99284; J3475; J0696; J7030; J2405

== ENCOUNTER 2025-05-21 15:31 | Emergency (ER) | payer OTHER ==
[2025-05-21] MEDS ORDERED: TDAP (DIPHTH,PERTUSS(ACELL),TET VAC) 0.5 ML VIAL IMVAC ONE (15:59)
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
[2025-05-21] MEDS ORDERED: LIDOCAINE 1% 20 ML MDV ONE (17:17)
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
[2025-05-21 22:33] VITALS: O2SAT 97
[2025-05-21 22:35] VITALS: BP 150/87
== END 2025-05-21 18:36 | disposition home or self-care (01) ==
LOC: ER 15:31
DX: S01.01XA Laceration without foreign body of scalp, initial encounter (principal); W01.0XXA Fall on same level from slipping, tripping and stumbling without subsequent striking against object, initial encounter; Z23 Encounter for immunization
CPT/HCPCS: 70450; 72125; 90715; 96372; 99284; 12032; J2003